=== PATIENT | female | born 1975 | race Caucasian/White ===

== ENCOUNTER → 2016-06-01 | Outpatient (CLI) | payer BC ==
[2016-06-01 16:23] VITALS: BP 137/94; PULSE 84; RESP 14; TEMP 100.8; BMI 32.5
--- NOTE | 2016-07-11 13:49 | PN ---
DATE OF SERVICE: 06/01/2016. CHIEF COMPLAINT: Follow-up sleeve gastrectomy. HISTORY OF PRESENT ILLNESS: Rosita Erazo is a 41-year-old female status post sleeve gastrectomy November 2013. She is 2 to 2-1/2 years out. Her highest weight for her 5 feet frame was 224 pounds. Her ideal body weight is 127 pounds. Today she comes in weighing 166 pounds. In fact she has gained 12 pounds, since her last visit in December 2015, now 5 months ago. Percent excess weight loss is 59%. She is maintained a 58 pounds weight loss. Body mass index is reduced from 43.8 down to 32.6. Total BMI point reduction is 11.3. She reports feeling ill today. She reports also having moderate appetite as well. Separately her other concerns include troubles with her skin as she is also evaluating for a panniculectomy. PAST MEDICAL HISTORY: 1. Irritable bowel syndrome. 2. Osteoarthritis of the hips. 3. Plantar fasciitis. 4. Morbid obesity. PAST SURGICAL HISTORY: 1. x2. 2. Tubal ligation. 3. Upper endoscopy. 4. Status post sleeve gastrectomy. MEDICATIONS: 1. Vitamin A. 2. Thiamine. 3. Omeprazole. 4. Multivitamin. 5. Metoprolol. 6. Iron. 7. Vitamin D. 8. Acyclovir. ALLERGIES: Denies. SOCIAL HISTORY: No active tobacco use. Rare alcohol use. FAMILY HISTORY: Pertinent for colitis including gallbladder disorder. REVIEW OF SYSTEMS: CONSTITUTIONAL: Weight gain of 12 pounds in [address] [place] [address] body weight of 127 pounds. Initial weight of 224 pounds. Total weight loss of 58 pounds. Percent excess weight loss is 59%. Body mass index reduced from 53.8 down to 32.6. Total BMI point reduction of 11.3. GASTROINTESTINAL: Has intermittent gastroesophageal reflux disease including colitis and irritable bowel syndrome. HEENT: No troubles with vision or hearing. ENDOCRINE: No reports of diabetes or thyroid disorders. CARDIOVASCULAR: No reports of heart attack or chest pain. RESPIRATORY: No reports of obstructive sleep apnea or asthma. GENITOURINARY: No reports of hematuria or kidney stones. MUSCULOSKELETAL: Improvement of bilateral hip pain. NEURO: No reports of stroke or seizure disorders. PSYCH: No reports of depression or suicidal ideation. PHYSICAL EXAM: VITAL SIGNS: 100.8, 84, 14, 137/94, 5 feet, 166 pounds. Body mass index of 32.6. GENERAL: Well-developed female no acute distress. ABDOMEN: Pannus extends over pubis x 5 cm. Mild hyperemia. No palpable incisional hernias. Soft, nontender, nondistended. HEENT: No sclerae icterus. Extraocular muscles intact. Moist buccal mucosa. NECK: Supple without lymphadenopathy. CHEST: Normal inspirations with equal bilateral excursions. CARDIOVASCULAR: Regular rate and rhythm. MUSCULOSKELETAL: No clubbing, cyanosis, or edema. NEURO: No focal or lateralizing signs. PSYCH: Appropriate affect. Alert and oriented to person, place, and time. ASSESSMENT: 1. Morbid obesity due to exogenous caloric intake, now resolved. 2. Body mass index reduced from 43.8 down to 32.6. 3. Status post sleeve gastrectomy. 4. History of osteoarthritis of the bilateral feet, resolved. 5. History of prediabetic state, resolved. 6. History of irritable bowel syndrome. 7. Chronic constipation. 8. Vitamin D deficiency. 9. Change in bowel habits. 10. Gastroesophageal reflux disease. 11. Hyperdynamic gallbladder. 12. Cold sores. 13. Iron deficiency anemia. 14. Panniculitis. 15. Epigastric abdominal pain. 16. Vitamin A deficiency. 17. Fever secondary to a viral source. 18. Dietary surveillance and counseling. PLAN: 1. Recommend bariatric metabolic panel. 2. She has gained quite a bit of weight and she reports increased appetite. Recommend dietary counseling with follow-up in approximately one month and initiation of a ketogenic diet. 3. She on exam she has panniculitis which Nystatin powder has been prescribed on her behalf. ADDENDUM: LABS: White count was normal at 9.8, hemoglobin was normal at 12.2. BUN was low 0.5. Iron is low at 21. Percent iron saturation low at 7.7. Ferritin elevated at 236. Vitamin B12 greater than 1000 and elevated. Vitamin D low at 26.3. Vitamin A low at 37, zinc is low at 50. Recommend zinc supplements including vitamin A supplements and vitamin D supplement. She also needs iron supplement and correction prior to any further surgical intervention for panniculectomy. Nystatin powder has been written on her behalf. [facility]
== END | disposition home or self-care (01) ==
LOC: BARWHC3 15:58
PROVIDERS: ATTEND Surgery Plastic and Reconstructive Surgery
DX: Z48.815 Encounter for surgical aftercare following surgery on the digestive system (principal); Z98.84 Bariatric surgery status; E66.01 Morbid (severe) obesity due to excess calories; E21.1 Secondary hyperparathyroidism, not elsewhere classified; E89.1 Postprocedural hypoinsulinemia; D50.8 Other iron deficiency anemias; E44.0 Moderate protein-calorie malnutrition; E55.9 Vitamin D deficiency, unspecified; K74.1 Hepatic sclerosis; N19 Unspecified kidney failure; K90.9 Intestinal malabsorption, unspecified
CPT/HCPCS: 99211

== ENCOUNTER → 2016-06-02 | Outpatient (CLI) | payer BC ==
[2016-06-02 16:32] LABS: CH 30.3; CHCM 34.2; HCT 35.7 % (34.0-46.0); HDW 2.55; HGB 12.2 gm/dL (11.4-16.0); MCH 30.4 pg (25.0-35.0); MCHC 34.2 g/dL (31.0-37.0); Mean Platelet Volume 8.4; RBC 4.02 m/uL (3.80-5.40); RDW 12.6 % (11.5-15.5); WBC 9.8 k/uL (3.8-10.6)
[2016-06-02 16:39] LABS: Partial Thromboplastin Time 26.7 sec (22.0-30.0); Prothrombin Time 9.9 sec (9.0-12.0)
[2016-06-02 16:47] LABS: ALT 32 U/L (9-52); AST 18 U/L (14-36); Alkaline Phosphatase 74 U/L (38-126); Anion Gap 9 mmol/L; Blood Urea Nitrogen 14 mg/dL (7-17); Calcium 9.3 mg/dL (8.4-10.2); Carbon Dioxide 30 mmol/L (22-30); Chloride 103 mmol/L (98-107); Cholesterol 154 mg/dL (<200); Glucose 88 mg/dL (74-99); HDL Cholesterol 58 mg/dL (40-60); Iron 21 ug/dL (37-170); Magnesium 2.1 mg/dL (1.6-2.3); Non-African American GFR(MDRD) >60 (>60 ml/min/1.73 sqM); Phosphorous 4.4 mg/dL (2.5-4.5); Potassium 4.7 mmol/L (3.5-5.1); Sodium 142 mmol/L (137-145); Total Bilirubin 0.2 mg/dL (0.2-1.3); Total Protein 6.5 g/dL (6.3-8.2); Triglycerides 81 mg/dL (<150)
[2016-06-02 16:58] LABS: % Iron Saturation 7.7 % (20-50); Prealbumin 22 mg/dL (18-36); Total Iron Binding Capacity 272 ug/dL (265-497)
[2016-06-02 17:53] LABS: Vitamin B12 >1000 pg/mL (239-931)
[2016-06-02 18:42] LABS: Hemoglobin A1C 4.7 % (4.2-6.1)
[2016-06-08 17:47] LABS: Selenium 142 mcg/L (63-160)
== END | disposition home or self-care (01) ==
LOC: LABWHC1 15:51
PROVIDERS: ATTEND Surgery Plastic and Reconstructive Surgery
DX: E66.01 Morbid (severe) obesity due to excess calories (principal); E89.1 Postprocedural hypoinsulinemia; D50.8 Other iron deficiency anemias; K90.89 Other intestinal malabsorption; E44.0 Moderate protein-calorie malnutrition; E55.9 Vitamin D deficiency, unspecified; K74.1 Hepatic sclerosis; N19 Unspecified kidney failure; K50.90 Crohn's disease, unspecified, without complications; E21.1 Secondary hyperparathyroidism, not elsewhere classified; Z48.815 Encounter for surgical aftercare following surgery on the digestive system; Z98.84 Bariatric surgery status
CPT/HCPCS: 36415; 80053; 80061; 82306; 82525; 82607; 82728; 82746; 83036; 83540; 83550; 83735; 83970; 84100; 84134; 84255; 84425; 84443; 84590; 84630; 85027; 85610; 85730

== ENCOUNTER → 2016-07-20 | Outpatient (CLI) | payer BC ==
[2016-07-20 16:58] VITALS: BP 146/76; PULSE 67; TEMP 98.2; BMI 32.0
--- NOTE | 2016-08-16 23:05 | P.PN ---
Progress Note - Text DATE OF SERVICE: 07/20/2016. CHIEF COMPLAINT: Panniculitis. HISTORY OF PRESENT ILLNESS: Rosita Erazo is a 41-year-old female status post sleeve gastrectomy November 2013. She is now over 2-1/2 years out. Her highest weight for her 5 feet frame was 224 pounds. Today she comes in weighing 164 pounds. She has lost 60 pounds. In fact she has lost 3 pounds since her last visit 2 months ago. Percent excess weight loss is 50%. Body mass index is reduced from 43.8 down to 32. She is only 37 pounds overweight. BMI point reduction is 12 points. She has been treated for nystatin powder for several years. Given the moderate size pannus including pain from her pannus she is evaluating for a panniculectomy. PAST MEDICAL HISTORY: 1. Irritable bowel syndrome. 2. Osteoarthritis of the hips. 3. Plantar fasciitis. 4. Morbid obesity, improved. 5. Panniculitis. PAST SURGICAL HISTORY: 1. x2. 2. Tubal ligation. 3. Upper endoscopy. 4. Status post sleeve gastrectomy. MEDICATIONS: 1. Vitamin A. 2. Thiamine. 3. Omeprazole. 4. Nystatin powder. 5. Multivitamin. 6. Metoprolol. 7. Iron. 8. Vitamin D. 9. Acyclovir. ALLERGIES: Denies. SOCIAL HISTORY: No active tobacco use. Rare alcohol use. FAMILY HISTORY: Pertinent for colitis including gallbladder disorder. REVIEW OF SYSTEMS: CONSTITUTIONAL: [place] body weight of 127 pounds. Initial weight of 224 pounds. Weight loss 60 pounds. She has lost 3 pounds in less than 2 months. Percent excess weight loss is 60%. Initial body mass index is 43.8. She is only 37 pounds overweight. CARDIOVASCULAR: She is now on blood pressure medications. MUSCULOSKELETAL: Reports lower back pain secondary to her pannus. Improvement of bilateral hip pain. GASTROINTESTINAL: Has intermittent gastroesophageal reflux disease including colitis and irritable bowel syndrome. HEENT: No troubles with vision or hearing. ENDOCRINE: No reports of diabetes or thyroid disorders. RESPIRATORY: No reports of obstructive sleep apnea or asthma. GENITOURINARY: No reports of hematuria or kidney stones. NEURO: No reports of stroke or seizure disorders. PSYCH: No reports of depression or suicidal ideation. PHYSICAL EXAM: VITAL SIGNS: 98.2, 67, 146/76, 5 feet, 164 pounds. Body mass is 32. ABDOMEN: Soft, nondistended, nontender. Pannus extends over pubis x 5 cm, hyperemic consistent with panniculitis. GENERAL: Well-developed female no acute distress. HEENT: No sclerae icterus. Extraocular muscles intact. Moist buccal mucosa. NECK: Supple without lymphadenopathy. CHEST: Normal inspirations with equal bilateral excursions. CARDIOVASCULAR: Regular rate and rhythm. MUSCULOSKELETAL: No clubbing, cyanosis, or edema. NEURO: No focal or lateralizing signs. PSYCH: Appropriate affect. Alert and oriented to person, place, and time. ASSESSMENT: 1. Morbid obesity due to excess calories, resolved. 2. Body mass index reduced from 43.8 down to 32. 3. Status post sleeve gastrectomy. 4. History of osteoarthritis of the bilateral feet, resolved. 5. History of prediabetic state, resolved. 6. History of irritable bowel syndrome. 7. Chronic constipation. 8. Vitamin D deficiency. 9. Obesity, body mass index 32. 10. Gastroesophageal reflux disease. 11. Iron deficiency anemia. 12. Panniculitis. 13. Vitamin A deficiency. 14. Zinc deficieny. PLAN: 1. In the interim, she will continue nystatin powder. Given the length of her bariatric procedure as well as time frame, panniculectomy will be of benefit. 2. She has completed bariatric metabolic panel which labs were consistent with vitamin A deficiency, zinc deficiency, Vitamin D deficiency all of which would need to be corrected prior to any surgical intervention. 3. Recommend follow-up upon her weight loss goal prior to panniculectomy as well. 4. Panniculectomy packet was given to her with the risk of bleeding, infection, flap failure, need for revisional surgery, postoperative seromas, placement of drains and chronic pain were also reviewed. 5. Will need inpatient hospitalization at least overnight. 6. DVT prophylaxis. 7. Antibiotic prophylaxis.
== END | disposition home or self-care (01) ==
LOC: BARWHC3 15:43
PROVIDERS: ATTEND Surgery Plastic and Reconstructive Surgery
DX: Z01.818 Encounter for other preprocedural examination (principal); M79.3 Panniculitis, unspecified; E66.9 Obesity, unspecified; Z68.32 Body mass index [BMI] 32.0-32.9, adult; Z98.84 Bariatric surgery status; Z79.899 Other long term (current) drug therapy
CPT/HCPCS: 99211

== ENCOUNTER 2017-11-22 14:49 | Emergency (ER) | payer BC ==
[2017-11-22 15:58] VITALS: RESP 18
[2017-11-22 16:31] LABS: Appearance,Urine Cloudy (Clear); Bilirubin,Urine Negative (Negative); Blood,Urine Large (Negative); Color,Urine Yellow; Glucose,Urine (UA) Negative (Negative); Ketones,Urine Negative (Negative); Leukocyte Esterase,Urine Moderate (Negative); Mucus,Urine Few /hpf; Nitrite,Urine Negative (Negative); PH, Urine 5.5 (5.0-8.0); Protein,Urine 1+ (Negative); RBC,Urine 46 /hpf (0-5); Specific Gravity,Urine 1.025 (1.001-1.035); Squamous Epithelial Cell,Urine 4 /hpf (0-4); Urobilinogen,Urine <2.0 mg/dL (<2.0)
[2017-11-22] MEDS ORDERED: NITROFURANTOIN MONOHYD/M-CRYST 100 MG CAP PO STA (17:36)
[2017-11-22] MEDS ORDERED: PHENAZOPYRIDINE 200 MG TAB PO STA (17:36)
[2017-11-22] MEDS ORDERED: IBUPROFEN 600 MG STARTER PACK 4 TAB BTL PO STA (17:36)
--- NOTE | 2017-11-22 17:44 | ED ---
Female Urogenital HPI - General Chief complaint: Urogenital Stated complaint: vaginal bleeding/bladder problems Time Seen by Provider: 11/22/17 16:56 Source: patient, RN notes reviewed, old records reviewed Mode of arrival: ambulatory Limitations: no limitations - History of Present Illness Initial comments: 42-year-old female presents emergency department today and she will complain of dysuria for 1 day. She also complains of vaginal bleeding last night into today , she reports that she had a uterine ablation 8 years ago. She's had no menstrual bleeding up until last night. Patient states that she has burning at the end of her urination. She's been going frequently. She is concerned that she may have a bladder prolapse. 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 She states that she follow up with on any. Patient states she's had no other symptoms at this time. - Related Data Home Medications Medication Instructions Recorded Confirmed Escitalopram [Lexapro] 10 mg PO HS 11/22/17 11/22/17 Metoprolol Succinate (ER) [Toprol 50 mg PO HS 11/22/17 11/22/17 Xl] Zolpidem Tartrate [Ambien] 5 mg PO HS 11/22/17 11/22/17 Previous Rx's Medication Instructions Recorded Nitrofurantoin Monohyd/M-Cryst 100 mg PO Q12HR #20 cap 11/22/17 [Macrobid] Phenazopyridine HCl [Pyridium] 100 mg PO TID #9 tab 11/22/17 Allergies Allergy/AdvReac Type Severity Reaction Status Date / Time No Known Allergies Allergy Verified 11/22/17 17:06 Review of Systems ROS Statement: Those systems with pertinent positive or pertinent negative responses have been documented in the HPI. ROS Other: All systems not noted in ROS Statement are negative. Constitutional: Denies: chills Eyes: Denies: eye pain ENT: Denies: ear pain, throat pain Respiratory: Denies: cough, dyspnea Cardiovascular: Denies: palpitations Endocrine: Denies: fatigue Gastrointestinal: Denies: abdominal pain Genitourinary: Reports: urgency, dysuria, frequency, abnormal menses. Denies: hematuria Musculoskeletal: Denies: back pain Skin: Denies: lesions Psychiatric: Denies: anxiety Past Medical History Past Medical History: No Reported History Additional Past Medical History / Comment(s): 2004 gestational diabetes w/ but never any other time, borderline hypertension, has never needed meds., no periods since ablation 3 yrs. ago, had HIDDA scan and ultrasound for gallbladder which was negative [id number] History of Any Multi-Drug Resistant Organisms: None Reported Past Surgical History: Bariatric Surgery, Section, Tubal Ligation, Uterine Ablation Additional Past Surgical History / Comment(s): LEEP procedure, TUBAL LIGATION 11-11-2004, 11/11/13 gastric sleeve Past Anesthesia/Blood Transfusion Reactions: No Reported Reaction Past Psychological History: No Psychological Hx Reported Smoking Status: Never smoker Past Alcohol Use History: Rare Past Drug Use History: None Reported General Exam - General Exam Comments Initial Comments: 42-year-old female. Alert and oriented. No acute distress. General: Well appearing, well nourished, in no distress. Oriented x 3, normal mood and affect . Ambulating without difficulty. Skin: Good turgor, no rash, unusual bruising or prominent lesions Hair: Normal texture and distribution. HEENT: Head: Normocephalic, atraumatic, no visible or palpable masses, depressions, or scaring. Eyes: Visual acuity intact, conjunctiva clear, sclera non-icteric, EOM intact, PERRL. Ears: EACs clear, TMs translucent & cone of light visualized. hearing intact. Nose: No external lesions, mucosa non-inflamed, septum and turbinates normal Mouth: Mucous membranes moist, no mucosal lesions. Teeth/Gums: No obvious caries or periodontal disease. No gingival inflammation or significant resorption. Pharynx: Mucosa non-inflamed, no tonsillar hypertrophy or exudate Neck: Supple, without lesions, bruits, or adenopathy, thyroid non-enlarged and non-tender Heart: No cardiomegaly or thrills; regular rate and rhythm, no murmur or gallop Lungs: Clear to auscultation and percussion Abdomen: Bowel sounds normal, no tenderness, organomegaly, masses, or hernia Extremities: No amputations or deformities, cyanosis, edema or varicosities, peripheral pulses intact Musculoskeletal: Normal gait and station. No misalignment, asymmetry, crepitation, defects, tenderness, masses, effusions, decreased range of motion, instability, atrophy or abnormal strength or tone in the head, neck, spine, ribs , pelvis or extremities. Neurologic: CN 2-12 normal. Sensation to pain, touch, and proprioception normal. DTRs normal in upper and lower extremities. No pathologic reflexes. Psychiatric: Oriented X3, intact recent and remote memory, judgment and insight , normal mood and affect. Pelvic: Vagina and cervix without lesions or discharge. Uterus and adnexa/ parametria nontender without masses. I see no vaginal bleeding this time. Cervix appears normal. She does have some bulging of the anterior aspect of the vagina concern for possibility of cystocele. Limitations: no limitations Course Vital Signs 11/22/17 11/22/17 15:55 18:47 Temperature 98.5 F 98.6 F Pulse Rate 81 67 Respiratory 18 18 Rate Blood Pressure 143/86 158/86 O2 Sat by Pulse 100 98 Oximetry Medical Decision Making - Medical Decision Making 42-year-old female presents with dysuria, and onset of vaginal bleeding last night. She has not had a period in the ears. This time she has no bleeding and pelvic exam. We did complete an ultrasound. This shows no evidence of fibroids or any other uterine abnormalities for bleeding. She does have evidence of urinary tract infection. Most likely the source of patient's pain with this dysuria and frequency. She is concerned for possibility of breath prolapse. 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 I do suspect a minor cystocele this time. Had discussion is follow-up with [employer]. We'll put the Patient on Macrobid and peridium for the UTI. She's ever had a UTI in the past. I discussed close follow-up with PCP and gynecology. Patient agrees treatment will comply. Return parameters were discussed. - Lab Data Lab Results 11/22/17 Range/Units 16:17 Urine Color Yellow Urine Appearance Cloudy H (Clear) Urine pH 5.5 (5.0-8.0) Ur Specific [place] 1.025 (1.001-1.035) Urine Protein 1+ H (Negative) Urine Glucose (UA) Negative (Negative) Urine Ketones Negative (Negative) Urine Blood Large H (Negative) Urine Nitrite Negative (Negative) Urine Bilirubin Negative (Negative) Urine Urobilinogen <2.0 (<2.0) mg/dL Ur Leukocyte Esterase Moderate H (Negative) Urine RBC 46 H (0-5) /hpf Urine WBC 65 H (0-5) /hpf Ur Squamous Epith Cells 4 (0-4) /hpf Urine Mucus Few H (None) /hpf - Radiology Data Radiology results: report reviewed No endometrial thickening seen. Normal size uterus. 1.3 cm right ovarian cyst. Disposition Clinical Impression: Abnormal uterine bleeding, UTI (urinary tract infection) Disposition: HOME SELF-CARE Condition: Good Instructions: Urinary Tract Infection in Women (ED), Cystocele (ED) Additional Instructions: Patient advised to take the antibiotic as prescribed. Follow-up with [employer]. Return to the emergency department if any alarming signs or symptoms occur. Prescriptions: Nitrofurantoin Monohyd/M-Cryst [Macrobid] 100 mg PO Q12HR #20 cap Phenazopyridine HCl [Pyridium] 100 mg PO TID #9 tab Is patient prescribed a controlled substance at d/c from ED?: No Referrals: Weston Rai DO [Primary Care Provider] - 1-2 days Reymundo Jeong MD [STAFF PHYSICIAN] - 1-2 days Time of Disposition: 18:30
--- NOTE | 2017-11-22 18:17 | US ---
EXAMINATION TYPE: US transvaginal DATE OF EXAM: 11/22/2017 COMPARISON: NONE CLINICAL HISTORY: Pain. Bleeding today no period for 9 years had an ablation done 8 years ago. TECHNIQUE: Transvaginal (TV). EXAM MEASUREMENTS: Uterus: 7.9 x 3.2 x 4.7 cm Right Ovary: 2.9 x 2.5 x 2.5 cm 1. Uterus: Anteverted Nabothian cysts seen. 2. Endometrium: Not well defined due to ablation. 3. Right Ovary: Multiple cystic area largest with a septation measuring 1.5 x 1.2 x 1.5cm. 4. Left Ovary: Obscured by overlying bowel gas Spectral, color and waveform doppler imaging shows good arterial and venous flow within the right o vary; there is no evidence for ovarian torsion. 5. Bilateral Adnexa: wnl 6. Posterior cul-de-sac: wnl nabothian cysts seen. Right ovary cyst with septation measuring 1.5 x 1.2 x 1.5cm. IMPRESSION: No endometrial thickening seen. Normal-sized uterus. 1.3 cm right ovarian cyst.
[2017-11-22 18:49] VITALS: BP 158/86; PULSE 67; TEMP 98.6
== END 2017-11-22 18:48 | disposition home or self-care (01) ==
LOC: EC 14:49
DX: N39.0 Urinary tract infection, site not specified (principal); N93.8 Other specified abnormal uterine and vaginal bleeding; Z79.899 Other long term (current) drug therapy; Z98.51 Tubal ligation status; Z98.890 Other specified postprocedural states
CPT/HCPCS: 76830; 81001; 87077; 87086; 87186; 93976; 99285

== ENCOUNTER → 2018-05-16 | Outpatient (CLI) | payer BC ==
[2018-05-16 14:39] VITALS: BP 160/96; PULSE 64; TEMP 98.1; BMI 32.3
--- NOTE | 2018-05-16 15:47 | P.PN ---
Subjective Progress Note Date: 05/16/18 DATE OF SERVICE: 05/16/2018 CHIEF COMPLAINT: Panniculitis. HISTORY OF PRESENT ILLNESS: Rosita Erazo is a 42-year-old female status post sleeve gastrectomy November 2013. She is 5 years out. Her highest weight for her 4 feet 11.5 frame was 227 pounds. Today she comes in weighing 165 pounds from 164 pounds, 2 years ago. She has lost 62 pounds. She has gained 1 pound in 2 years. Percent excess weight loss is 60%. Body mass index is reduced from 45.2 down to 32.8.. She is 42 pounds overweight. She has been treated for panniculitis with nystatin powder for over 5 years without imrpovement. Given the moderate size pannus including pain from her pannus she is evaluating for a panniculectomy. Additionally, she reports severe GERD. She takes Tums everyday. She has much gas. PAST MEDICAL HISTORY: 1. Irritable bowel syndrome. 2. Osteoarthritis of the hips. 3. Plantar fasciitis. 4. Morbid obesity, BMI 45.2, initial 5. Panniculitis. PAST SURGICAL HISTORY: 1. x2. 2. Tubal ligation. 3. Upper endoscopy. 4. Status post sleeve gastrectomy. MEDICATIONS: 1. Multivitamin. ALLERGIES: Denies. SOCIAL HISTORY: No active tobacco use. Rare alcohol use. FAMILY HISTORY: Pertinent for colitis including gallbladder disorder. REVIEW OF SYSTEMS: CONSTITUTIONAL: [place] body weight of 127 pounds. Initial weight of 227 pounds. Initial body mass index is 45.2. CARDIOVASCULAR: She is off blood pressure medications. No chest pain. MUSCULOSKELETAL: Reports lower back pain secondary to her pannus. Improvement of bilateral hip pain. GASTROINTESTINAL: Has intermittent gastroesophageal reflux disease including colitis and irritable bowel syndrome. HEENT: No troubles with vision or hearing. ENDOCRINE: No reports of diabetes or thyroid disorders. RESPIRATORY: No reports of obstructive sleep apnea or asthma. GENITOURINARY: No reports of hematuria or kidney stones. NEURO: No reports of stroke or seizure disorders. PSYCH: No reports of depression or suicidal ideation. SKIN: History of panniculitis. No skin cancer. PHYSICAL EXAM: VITAL SIGNS: 4 foot 11.5 inches, 165 pounds. Body mass is 32.8 Vital Signs Temp 98.1 F 05/16/18 14:36 Pulse 64 05/16/18 14:36 Resp BP 160/96 05/16/18 14:36 Pulse Ox GENERAL: Well developed and in no acute distress. Pleasant. HEENT: No sclera icterus. Extraocular movements grossly intact. Moist buccal mucosa. Head is atraumatic, normocephalic. Hears conversational speech. No nasal drainage. NECK: Supple without lymphadenopathy. No JV distention. CHEST: Non-labored respirations and equal bilateral excursions. CARDIOVASCULAR: Regular rate and rhythm. Palpable 2+ radial pulses. ABDOMEN: Soft, nontender. Nondistended. MUSCULOSKELETAL: No clubbing, cyanosis or edema. NEUROLOGIC: No focal or lateralizing signs. Cranial nerves II-12 grossly intact PSYCH: Appropriate affect. Alert and oriented to person, place and time. BREAST: There are no palpable lesions along the bilateral breasts. No axillary adenopathy. SKIN: Good skin turgor. Well perfused. ASSESSMENT: 1. Morbid obesity due to excess calories, resolved. 2. Body mass index reduced from 45.2 down to 32.8 3. Status post sleeve gastrectomy. 4. History of osteoarthritis of the bilateral feet, resolved. 5. History of prediabetic state, resolved. 6. History of irritable bowel syndrome. 7. Chronic constipation. 8. Vitamin D deficiency. 9. Obesity, body mass index 32. 10. Gastroesophageal reflux disease. 11. Iron deficiency anemia. 12. Panniculitis. 13. Vitamin A deficiency. 14. Zinc deficieny. 15. Irritable bowel syndrome 16. Food allergy PLAN: 1. Recommend esophogram for hiatal hernia 2. Recommend upper endoscopy for gastroesophageal reflux disease 3. Recommend antacid for heartburn. 4. Irritable bowel syndrome cannot be excluded 5. May need evaluation with a food digital printer operator 6. Recommend bariatric labs to correct micronutrients 7. Panniculectomy packet given. 8. Recommend 2 week protein diet for weight loss. Objective - Vital Signs Vital signs: Vital Signs Temp 98.1 F 05/16/18 14:36 Pulse 64 05/16/18 14:36 Resp BP 160/96 05/16/18 14:36 Pulse Ox Intake & Output 05/15/18 05/16/18 05/16/18 18:59 06:59 18:59 Weight 75.024 kg
== END | disposition home or self-care (01) ==
LOC: BARWHC3 14:11
PROVIDERS: ATTEND Surgery Plastic and Reconstructive Surgery
DX: Z48.815 Encounter for surgical aftercare following surgery on the digestive system (principal); K59.09 Other constipation; E55.9 Vitamin D deficiency, unspecified; E66.9 Obesity, unspecified; K21.9 Gastro-esophageal reflux disease without esophagitis; D50.9 Iron deficiency anemia, unspecified; M79.3 Panniculitis, unspecified; E50.9 Vitamin A deficiency, unspecified; E60 Dietary zinc deficiency; K58.9 Irritable bowel syndrome, unspecified; T78.1XXA Other adverse food reactions, not elsewhere classified, initial encounter; Z68.32 Body mass index [BMI] 32.0-32.9, adult; Z98.84 Bariatric surgery status
CPT/HCPCS: 99211

== ENCOUNTER → 2019-05-22 | Outpatient (CLI) | payer BC ==
--- NOTE | 2019-05-22 16:06 | P.PN ---
Subjective Progress Note Date: 05/22/19 DATE OF SERVICE: 05/22/2019 CHIEF COMPLAINT: Panniculitis. HISTORY OF PRESENT ILLNESS: Rosita Erazo now Rosita Crockett is a 43-year-old female status post sleeve gastrectomy November 2013. She is 5 years out. She comes in with persistent panniculitis. She has been prescribed Nystatin powder for treatment over 5 years. She reports severe skin irritation that stings along her pannus. She reports lower back pain from her pannus. She has tried [id number] treatment without improvement. She has pulling sensation along her lower back from her pannus. She has troubles with grooming and hygiene as a result of her pannus. Her pannus interferes with her activities of daily living including dressing, bathing, and hygiene. She presents for evaluation for a panniculectomy. Her ideal body weight for her 4 feet 11.5 is 123 pounds. Her highest weight is 227 pounds, BMI 45.2. Today she comes in weighing 152 pounds from 165 pounds, 1 year ago. She has lost 13 pounds in 1 year. Her lifetime weight loss is 75 pounds. Percent excess weight loss is 72 %. Body mass index is reduced from 45.2 down to 30.2. She is 29 pounds overweight. PAST MEDICAL HISTORY: 1. Irritable bowel syndrome. 2. Osteoarthritis of the hips. 3. Plantar fasciitis. 4. Morbid obesity, BMI 45.2, initial 5. Panniculitis. PAST SURGICAL HISTORY: 1. x2. 2. Tubal ligation. 3. Upper endoscopy. 4. Status post sleeve gastrectomy. MEDICATIONS: Home Medications Medication Instructions Recorded Confirmed Multivitamins, Thera [Multivitamin 1 tab PO DAILY 05/22/19 05/22/19 (formulary)] Previous Rx's Medication Instructions Recorded Nystatin 100,000 Unit/gm Powd 1 applic TOPICAL BID #60 powder 05/22/19 [Mycostatin Powder] ALLERGIES: Denies. SOCIAL HISTORY: No active tobacco use. Rare alcohol use. FAMILY HISTORY: Pertinent for colitis including gallbladder disorder. REVIEW OF SYSTEMS: CONSTITUTIONAL: [place] body weight of 127 pounds. Initial weight of 227 pounds. Initial body mass index is 45.2. CARDIOVASCULAR: She is off blood pressure medications. No chest pain. MUSCULOSKELETAL: Reports lower back pain secondary to her pannus. Improvement of bilateral hip pain. GASTROINTESTINAL: Has intermittent gastroesophageal reflux disease including colitis and irritable bowel syndrome. HEENT: No troubles with vision or hearing. ENDOCRINE: No reports of diabetes or thyroid disorders. RESPIRATORY: No reports of obstructive sleep apnea or asthma. GENITOURINARY: No reports of hematuria or kidney stones. NEURO: No reports of stroke or seizure disorders. PSYCH: No reports of depression or suicidal ideation. SKIN: History of panniculitis. No skin cancer. PHYSICAL EXAM: VITAL SIGNS: 4 foot 11.5 inches, 152 pounds. Body mass is 30.2 Vital Signs Temp 98 F 05/22/19 16:08 Pulse 77 05/22/19 16:08 Resp BP 145/93 05/22/19 16:08 Pulse Ox GENERAL: Well developed and in no acute distress. Pleasant. HEENT: No sclera icterus. Extraocular movements grossly intact. Moist buccal mucosa. Head is atraumatic, normocephalic. Hears conversational speech. No nasal drainage. NECK: Supple without lymphadenopathy. No JV distention. CHEST: Non-labored respirations and equal bilateral excursions. CARDIOVASCULAR: Regular rate and rhythm. Palpable 2+ radial pulses. ABDOMEN: Pannus over 6 cm hanging with redness. Weight of 10 pounds. Soft, nontender. Nondistended. No large palpable hernias. MUSCULOSKELETAL: No clubbing, cyanosis or edema. NEUROLOGIC: No focal or lateralizing signs. Cranial nerves II-12 grossly intact PSYCH: Appropriate affect. Alert and oriented to person, place and time. BREAST: There are no palpable lesions along the bilateral breasts. No axillary adenopathy. SKIN: Good skin turgor. Well perfused. ASSESSMENT: 1. Morbid obesity due to excess calories, resolved. 2. Body mass index reduced from 45.2 down to 30.2 3. Status post sleeve gastrectomy. 4. History of osteoarthritis of the bilateral feet, resolved. 5. History of prediabetic state, resolved. 6. History of irritable bowel syndrome. 7. Chronic constipation. 8. Vitamin D deficiency. 9. Gastroesophageal reflux disease. 10. Iron deficiency anemia. 11. Panniculitis. PLAN: 1. Recommend panniculectomy for chronic panniculitis with concomittant severe lower back pain and uncontrolled symptoms despite systemic and local treatment including limitation of activities of daily living. Anticipated resection of 5 to 10 pounds described. Panniculectomy should correct her functional deficits. 2. Recommend 2 week protein diet for optimal recovery. 3. Risks of bleeding, needs for drains, flap failure, infection, need for further surgery were described. She is high risk for lg-operative complications with anticipated 10+ pound skin resection. 4. Inpatient hospitalization also described 5. DVT prophylaxis. 6. Antibiotic prophylaxis 7. Will need correction of all vitamin deficiencies prior to panniculectomy. 8. In the interim, Nystatin powder prescribed for her symptoms.
[2019-05-22 16:21] VITALS: BP 145/93; PULSE 77; TEMP 98; BMI 30.2
== END | disposition home or self-care (01) ==
LOC: BARWHC3 14:33
PROVIDERS: ATTEND Surgery Plastic and Reconstructive Surgery
DX: Z48.815 Encounter for surgical aftercare following surgery on the digestive system (principal); E66.01 Morbid (severe) obesity due to excess calories; K59.09 Other constipation; E55.9 Vitamin D deficiency, unspecified; K21.9 Gastro-esophageal reflux disease without esophagitis; D50.9 Iron deficiency anemia, unspecified; M79.3 Panniculitis, unspecified; Z68.30 Body mass index [BMI] 30.0-30.9, adult; Z87.19 Personal history of other diseases of the digestive system; Z98.84 Bariatric surgery status; Z79.899 Other long term (current) drug therapy
CPT/HCPCS: 99211

== ENCOUNTER → 2019-05-27 | Outpatient (CLI) | payer BC ==
[2019-05-27 09:58] LABS: HCT 39.7 % (34.0-46.0); HGB 12.9 gm/dL (11.4-16.0); MCH 29.1 pg (25.0-35.0); MCHC 32.4 g/dL (31.0-37.0); Mean Platelet Volume 8.8; Platelet Count 285 k/uL (150-450); RBC 4.41 m/uL (3.80-5.40); WBC 8.6 k/uL (3.8-10.6)
[2019-05-27 10:06] LABS: Partial Thromboplastin Time 26.3 sec (22.0-30.0); Prothrombin Time 10.1 sec (9.0-12.0)
[2019-05-27 16:45] LABS: % Iron Saturation 36.74 (12.00-45.00); African American GFR (CKD) 130.3 (60.0-200.0); Albumin 4.4 g/dL (3.80-4.90); Albumin/Globulin Ratio 2.44 (1.60-3.17); Anion Gap 6.6 mmol/L (4.00-12.00); Calcium 9.1 mg/dL (8.7-10.3); Carbon Dioxide 26.4 mmol/L (21.6-31.8); Chol/HDL Ratio 2.8; Globulin 1.8 g/dL (1.6-3.3); Non-African American GFR(CKD) 112.4 (60.0-200.0); Phosphorus 3.6 mg/dL (2.4-5.1); Total Bilirubin 0.5 mg/dL (0.3-1.2); Total Protein 6.2 g/dL (6.2-8.2)
[2019-05-27 16:55] LABS: Ferritin 240.8 ng/mL (10.0-291.0)
[2019-05-27 16:56] LABS: Folate, Serum 8.5 ng/mL
[2019-05-28 12:44] LABS: Zinc, Serum 66 ug/dL (60-130)
[2019-05-28 13:51] LABS: Hemoglobin A1C 4.9 % (4.0-6.0)
[2019-05-30 08:19] LABS: Vit B1(Thiamine) 67 ug/L (38-122)
== END | disposition home or self-care (01) ==
LOC: LABWHC1 09:17
PROVIDERS: ATTEND Surgery Plastic and Reconstructive Surgery
DX: E66.01 Morbid (severe) obesity due to excess calories (principal); E21.1 Secondary hyperparathyroidism, not elsewhere classified; E89.1 Postprocedural hypoinsulinemia; D50.9 Iron deficiency anemia, unspecified; K90.9 Intestinal malabsorption, unspecified; E55.9 Vitamin D deficiency, unspecified; K76.9 Liver disease, unspecified; N19 Unspecified kidney failure; K50.90 Crohn's disease, unspecified, without complications
CPT/HCPCS: 36415; 80053; 80061; 82306; 82525; 82607; 82728; 82746; 83036; 83540; 83550; 83735; 83970; 84100; 84134; 84255; 84425; 84443; 84590; 84630; 85027; 85610; 85730

== ENCOUNTER 2019-11-20 09:18 | Day surgery (SDC) | payer BC ==
[2019-11-19 08:32] VITALS: BMI 30.1
--- NOTE | 2019-11-20 08:34 | P.GSHP ---
History of Present Illness H&P Date: 11/20/19 CHIEF COMPLAINT: GERD HISTORY OF PRESENT ILLNESS: The patient is a 44-year-old female who presents reports gastroesophageal reflux disease. Upper endoscopy was offered for further evaluation and management. PAST MEDICAL HISTORY: Please see list. PAST SURGICAL HISTORY: Please see list. MEDICATIONS: Please see list. ALLERGIES: Please see list. SOCIAL HISTORY: No illicit drug use FAMILY HISTORY: No reports of Crohn disease or ulcerative colitis. REVIEW OF ORGAN SYSTEMS: CONSTITUTIONAL: No reports of fevers or chills. GI: Denies any blood in stools or constipation. PHYSICAL EXAM: VITAL SIGNS: Stable GENERAL: Well-developed and pleasant in no acute distress. HEENT: No scleral icterus. Extraocular movements grossly intact. Moist buccal mucosa. NECK: Supple without lymphadenopathy. CHEST: Unlabored respirations. Equal bilateral excursions. CARDIOVASCULAR: Regular rate and rhythm. Distal 2+ pulses. ABDOMEN: Soft, nondistended. MUSCULOSKELETAL: No clubbing, cyanosis, or edema. ASSESSMENT: 1. Gastroesophageal reflux disease PLAN: 1. Recommend proceeding with an upper endoscopy Past Medical History Past Medical History: GERD/Reflux Additional Past Medical History / Comment(s): 2004 Hx Gestational Diabetes w/ in 2004, hx borderline hypertension. History of Any Multi-Drug Resistant Organisms: None Reported Past Surgical History: Bariatric Surgery, Section, Tubal Ligation, Uterine Ablation Additional Past Surgical History / Comment(s): LEEP procedure, Gastric Sleeve. Past Anesthesia/Blood Transfusion Reactions: No Reported Reaction Past Psychological History: No Psychological Hx Reported Smoking Status: Never smoker Past Alcohol Use History: Rare Past Drug Use History: None Reported - Past Family History Mother Family Medical History: No Reported History Medications and Allergies Home Medications Medication Instructions Recorded Confirmed Type Zolpidem [Ambien] 5 mg PO HS 10/23/19 11/19/19 History Acetaminophen [Tylenol Extra 1,000 mg PO BID 11/19/19 11/19/19 History Strength] Allergies Allergy/AdvReac Type Severity Reaction Status Date / Time No Known Allergies Allergy Verified 11/19/19 08:22
--- NOTE | 2019-11-20 08:40 | P.PCN ---
Date of Procedure: 11/20/19 Description of Procedure: PREOPERATIVE DIAGNOSIS: Gastroesophageal reflux disease. Morbid obesity. POSTOPERATIVE DIAGNOSIS: Morbid obesity. Gastritis. Gastroesophageal reflux disease. OPERATION: Esophagogastroduodenoscopy with biopsies along antrum. SURGEON: Priyanka Hewitt MD ANESTHESIA: MAC. INDICATIONS: The patient is a 44-year-old female who presents with a history of reflux disease. Benefits and risks of the procedure were described. Informed consent was obtained. DESCRIPTION: The patient was brought into the endoscopy suite and laid in the left lateral decubitus position. An Olympus gastroscope was passed along the posterior oropharynx down to the distal esophagus where the squamocolumnar junction was encountered at 40 cm from the incisors. The stomach was entered and no bile reflux was found. Additional findings are listed below. Biopsies with cold forceps were obtained of the antrum. The first through third portion of the duodenum was examined and unremarkable. Retroflexion of the scope confirmed Hill grade 2 lower esophageal valve. The squamocolumnar junction demonstrated no LA grade A erosive esophagitis. The stomach was desufflated. The patient tolerated the procedure well. FINDINGS: Squamocolumnar junction 40 cm from the incisors. Diaphragmatic hiatus at 40 cm. Hill grade 2 lower esophageal valve. No LA grade A erosive esophagitis. No active duodenitis. Chronic gastritis RECOMMENDATIONS: Upper endoscopy as needed. Plan - Discharge Summary Discharge Rx Participant: Yes New Discharge Prescriptions: Continue Zolpidem [Ambien] 5 mg PO HS Acetaminophen [Tylenol Extra Strength] 1,000 mg PO BID Discharge Medication List Zolpidem [Ambien] 5 mg PO HS 10/23/19 [History] Acetaminophen [Tylenol Extra Strength] 1,000 mg PO BID 11/19/19 [History] [facility] [place] [facility] Patient Instructions/Handouts: Gastritis (DC) Discharge Disposition: HOME SELF-CARE
[~2019-11-20 09:18] MED LIST: LACTATED RINGERS 1,000 ML IV SCH
[2019-11-20 09:37] VITALS: RESP 16; TEMP 98.4
[2019-11-20] MEDS ORDERED: LIDOCAINE 1% (10MG/ML) FOR IV START INTRADERMA ONE (09:45)
[2019-11-20] MEDS ORDERED: PROPOFOL 10 MG/ML 20 ML VIAL IV ONE (10:45)
[2019-11-20] MEDS ORDERED: LIDOCAINE 1% INJ 10MG/ML (20 ML MDV) ONE (10:45)
--- NOTE | 2019-11-20 11:02 | P.PCN ---
Date of Procedure: 11/20/19 Description of Procedure: PREOPERATIVE DIAGNOSIS: Gastroesophageal reflux disease. Epigastric abdominal pain History of sleeve gastrectomy POSTOPERATIVE DIAGNOSIS: Gastritis. Gastroesophageal reflux disease. Diaphragmatic hiatal hernia History of sleeve gastrectomy OPERATION: Esophagogastroduodenoscopy with biopsies along antrum. SURGEON: Priyanka Hewitt MD ANESTHESIA: MAC. INDICATIONS: The patient is a 44-year-old female who presents with a history of reflux disease and history of sleeve gastrectomy. Benefits and risks of the procedure were described. Informed consent was obtained. DESCRIPTION: The patient was brought into the endoscopy suite and laid in the left lateral decubitus position. An Olympus gastroscope was passed along the posterior oropharynx down to the distal esophagus where the squamocolumnar junction was encountered at 36 cm from the incisors. The stomach was entered and bile reflux was found. The sleeve was lumen was without corkscrewing and adequate size reservoir. Additional findings are listed below. Biopsies with cold forceps were obtained of the antrum. The first through third portion of the duodenum was examined and unremarkable. Retroflexion of the scope was attempted and limited due to her sleeve gastrectomy. The squamocolumnar junction demonstrated LA grade B erosive esophagitis. The stomach was desufflated. The patient tolerated the procedure well. FINDINGS: Squamocolumnar junction 36 cm from the incisors. Diaphragmatic hiatus at 39 cm. Hiatal hernia, 3 cm Sleeve gastrectomy with uniform and adequate reservoir without corkscrewing or tortuosity. LA grade B erosive esophagitis. No active duodenitis. Acute and chronic gastritis with superficial ulceration RECOMMENDATIONS: Recommend repair of diaphragmatic hiatal hernia Also recommend start of Carafate including antacid Plan - Discharge Summary Discharge Rx Participant: Yes New Discharge Prescriptions: New Sucralfate [Carafate] 1 gm PO BID #60 tab Continue Zolpidem [Ambien] 5 mg PO HS Acetaminophen [Tylenol Extra Strength] 1,000 mg PO BID Discharge Medication List Zolpidem [Ambien] 5 mg PO HS 10/23/19 [History] Acetaminophen [Tylenol Extra Strength] 1,000 mg PO BID 11/19/19 [History] Sucralfate [Carafate] 1 gm PO BID #60 tab 11/20/19 [Rx] Follow [facility]ment[facility] [place] [facility] Patient Instructions/Handouts: Gastritis (DC), Hiatal Hernia (DC), Gastroesophageal Reflux Disease (DC) Activity/Diet/Wound Care/Special Instructions: New prescription at [facility] Discharge Disposition: HOME SELF-CARE
[2019-11-20 11:29] VITALS: BP 146/98; PULSE 72
--- NOTE | 2019-11-20 11:46 | P.PN ---
Progress Note - Text Progress Note Date: 11/20/19 To Whom It May Concern: Rosita Crockett had a procedure today. She she was ill yesterday. She will be off work until 11/22/2019 for follow-up. Regards, Priyanka Hewitt MD
== END 2019-11-20 11:46 | disposition home or self-care (01) ==
LOC: ORWHC2ENDO 09:18
PROVIDERS: ATTEND Surgery Plastic and Reconstructive Surgery
DX: K21.9 Gastro-esophageal reflux disease without esophagitis (principal); K44.9 Diaphragmatic hernia without obstruction or gangrene; K29.50 Unspecified chronic gastritis without bleeding; Z98.84 Bariatric surgery status; K22.10 Ulcer of esophagus without bleeding; K25.9 Gastric ulcer, unspecified as acute or chronic, without hemorrhage or perforation; I10 Essential (primary) hypertension; Z98.51 Tubal ligation status; Z98.890 Other specified postprocedural states; Z86.32 Personal history of gestational diabetes; Z79.899 Other long term (current) drug therapy
CPT/HCPCS: 81025; 88305; 43239; J2001; J2704

== ENCOUNTER → 2019-11-22 | Outpatient (CLI) | payer BC ==
--- NOTE | 2019-11-22 15:57 | FL ---
EXAMINATION TYPE: FL barium swallow DATE OF EXAM: 11/22/2019 HISTORY: Dysphasia. History of gastric sleeve. Patient reports significant gastroesophageal reflux. COMPARISON: NONE TECHNIQUE: A single contrast esophagram is performed utilizing barium. FINDINGS: The esophagus shows normal motility and emptying into the stomach. Small hiatal hernia. There is a s mall epiphrenic diverticulum seen anteriorly. No evidence of stricture. There is expected postoperati ve appearance of the stomach status post gastric sleeve surgery. Normal appearance of the duodenal sw eep. There is severe spontaneous gastroesophageal reflux seen during real time performance of this st udy. Total fluoroscopy time 1.02 minutes. IMPRESSION: 1. Small hiatal hernia. 2. Small epiphrenic diverticulum. 3. Severe spontaneous gastroesophageal reflux. 4. Expected postoperative appearance of the stomach status post gastric sleeve.
== END | disposition home or self-care (01) ==
LOC: RADFLMAIN 09:48
PROVIDERS: ATTEND Surgery Plastic and Reconstructive Surgery
DX: K21.9 Gastro-esophageal reflux disease without esophagitis (principal); K22.5 Diverticulum of esophagus, acquired; Z98.84 Bariatric surgery status
CPT/HCPCS: 74220

== ENCOUNTER → 2019-11-26 | Outpatient (CLI) | payer BC ==
[2019-11-26 13:36] LABS: HCT 41.6 % (34.0-46.0); HGB 13.3 gm/dL (11.4-16.0); MCH 28.7 pg (25.0-35.0); MCV 89.7 fL (80.0-100.0); Mean Platelet Volume 8.3; Platelet Count 313 k/uL (150-450); RBC 4.64 m/uL (3.80-5.40); RDW 13.1 % (11.5-15.5); WBC 7.9 k/uL (3.8-10.6)
[2019-11-26 13:42] LABS: ALT 17 U/L (4-34); AST 20 U/L (14-36); African American GFR (CKD) >90 (>60 ml/min/1.73 sqM); Albumin 4.4 g/dL (3.5-5.0); Alkaline Phosphatase 68 U/L (38-126); Anion Gap 8 mmol/L; Blood Urea Nitrogen 4 mg/dL (7-17); Calcium 9.6 mg/dL (8.4-10.2); Carbon Dioxide 28 mmol/L (22-30); Chloride 103 mmol/L (98-107); Cholesterol 174 mg/dL (<200); Glucose 85 mg/dL (74-99); HDL Cholesterol 61 mg/dL (40-60); LDL Cholesterol,Calculated 96 mg/dL (0-99); Magnesium 2.1 mg/dL (1.6-2.3); Non-African American GFR(CKD) >90 (>60 ml/min/1.73 sqM); Phosphorus 3.9 mg/dL (2.5-4.5); Potassium 4.1 mmol/L (3.5-5.1); Sodium 139 mmol/L (137-145); Total Bilirubin 0.4 mg/dL (0.2-1.3); Triglycerides 85 mg/dL (<150)
[2019-11-26 13:45] LABS: INR 0.9 (<1.2); Partial Thromboplastin Time 24.7 sec (22.0-30.0); Prothrombin Time 9.8 sec (9.0-12.0)
[2019-11-26 22:46] LABS: Ferritin 201.5 ng/mL (10.0-291.0); Folate, Serum 4.1 ng/mL
[2019-11-26 23:17] LABS: % Iron Saturation 16.67 (12.00-45.00); Iron 51 ug/dL (50-170); Total Iron Binding Capacity 306 ug/dL (228-460)
[2019-11-27 04:29] LABS: Hemoglobin A1C 5.1 % (4.0-6.0)
[2019-11-27 13:54] LABS: Zinc, Serum 66 ug/dL (60-130)
[2019-11-27 13:55] LABS: Vitamin A 42 ug/dL (38-106)
[2019-11-28 06:36] LABS: Vit B1(Thiamine) 56 ug/L (38-122)
[2019-11-29 02:49] LABS: Selenium 93 mcg/L (63-160)
== END | disposition home or self-care (01) ==
LOC: LABPAT 11:19
PROVIDERS: ATTEND Surgery Plastic and Reconstructive Surgery
DX: E21.1 Secondary hyperparathyroidism, not elsewhere classified (principal); E89.1 Postprocedural hypoinsulinemia; D50.9 Iron deficiency anemia, unspecified; K90.9 Intestinal malabsorption, unspecified; E55.9 Vitamin D deficiency, unspecified; K74.1 Hepatic sclerosis; N19 Unspecified kidney failure; K50.90 Crohn's disease, unspecified, without complications; E66.01 Morbid (severe) obesity due to excess calories
CPT/HCPCS: 36415; 80053; 80061; 82306; 82525; 82607; 82728; 82746; 83036; 83540; 83550; 83735; 83970; 84100; 84134; 84255; 84425; 84443; 84590; 84630; 85027; 85610; 85730; 86850; 86900; 86901

== ENCOUNTER 2019-12-02 10:45 | Day surgery (SDC) | payer BC ==
--- NOTE | 2019-12-02 06:38 | P.GSHP ---
History of Present Illness H&P Date: 12/02/19 CHIEF COMPLAINT: Paraesophageal hiatal hernia with gastroesophageal reflux disease. HISTORY OF PRESENT ILLNESS: The patient is a 44-year-old female who presents with paraesophageal hiatal hernia. She has completed additional work- up including upper endoscopy workup. Now she presents for surgical intervention. PAST MEDICAL HISTORY: Please see list. PAST SURGICAL HISTORY: Please see list. MEDICATIONS: Please see list. ALLERGIES: Please see list. SOCIAL HISTORY: No illicit drug use FAMILY HISTORY: No reports of Crohn disease or ulcerative colitis. REVIEW OF ORGAN SYSTEMS: CONSTITUTIONAL: No reports of fevers or chills. GI: Denies any blood in stools or constipation. PHYSICAL EXAM: VITAL SIGNS: Stable GENERAL: Well-developed pleasant and in no acute distress. HEENT: No scleral icterus. Extraocular movements grossly intact. Moist buccal mucosa. NECK: Supple without lymphadenopathy. CHEST: Unlabored respirations. Equal bilateral excursions. CARDIOVASCULAR: Regular rate and rhythm. Distal 2+ pulses. ABDOMEN: Soft, nondistended. No peritoneal signs. MUSCULOSKELETAL: No clubbing, cyanosis, or edema. SKIN: Well-perfused. Good skin turgor. ASSESSMENT: 1. Diaphragmatic paraesophageal hiatal hernia with severe gastroesophageal reflux disease. PLAN: 1. Recommend proceeding with a robotic paraesophageal hiatal hernia with possible mesh. 2. Benefits and risks of surgical intervention was discussed including possibility of open technique. 3. Inpatient hospitalization recommended of 2 nights 4. DVT prophylaxis. 5. Antibiotic prophylaxis. 6. She has also completed a very low caloric high-protein diet to address underlying hepatomegaly. Past Medical History Past Medical History: GERD/Reflux Additional Past Medical History / Comment(s): 2004 gestational diabetes w/ but never any other time. Borderline hypertension, has never needed meds. No periods since ablation 3 yrs. ago. History of Any Multi-Drug Resistant Organisms: None Reported Past Surgical History: Ablation, Bariatric Surgery, Section, Tubal Ligation, Uterine Ablation Additional Past Surgical History / Comment(s): UTERINE ABLATION. LEEP procedure. TUBAL LIGATION 11-11-2004. 11/11/13 gastric sleeve Past Anesthesia/Blood Transfusion Reactions: No Reported Reaction Past Psychological History: No Psychological Hx Reported Smoking Status: Never smoker Past Alcohol Use History: Rare Past Drug Use History: None Reported Medications and Allergies Home Medications Medication Instructions Recorded Confirmed Type Zolpidem [Ambien] 5 mg PO HS 07/15/20 08/18/20 History Acetaminophen [Tylenol Extra 1,000 mg PO BID 11/19/19 11/26/19 History Strength] Sucralfate [Carafate] 1 gm PO BID #60 tab 11/20/19 11/26/19 Rx Omeprazole [PriLOSEC] 40 mg PO DAILY PRN 11/26/19 11/26/19 History Allergies Allergy/AdvReac Type Severity Reaction Status Date / Time No Known Allergies Allergy Verified 11/26/19 09:31
[~2019-12-02 10:45] MED LIST changes: +ACETAMINOPHEN TAB 500 MG TAB PO PRN; +CHLORHEXIDINE GLUCONATE 15 ML CUP MUCOUS MEM ONE; +DEXAMETHASONE SOD PHOSPHATE 10 MG/ML 1 ML VIAL IV ONE; +GABAPENTIN 300 MG CAP PO STA; -LACTATED RINGERS 1,000 ML IV SCH; +LIDOCAINE 1% (10MG/ML) FOR IV START INTRADERMA PRN; +ONDANSETRON 4 MG/2 ML VIAL IVP ONE; +PANTOPRAZOLE 40 MG/10 ML VIAL IV STA; +SCOPOLAMINE 1.5MG/72HR PATCH TRANSDERM ONE; +SCOPOLAMINE 1.5MG/72HR PATCH TRANSDERM STA
[2019-12-02] MEDS ORDERED: fentaNYL (PF) 50 MCG/ML 2 ML AMP IV ONE (10:46)
[2019-12-02] MEDS ORDERED: MIDAZOLAM 2 MG/2 ML VIAL IV ONE (10:46)
[2019-12-02] MEDS ORDERED: ONDANSETRON 4 MG/2 ML VIAL IM ONE (10:46)
[2019-12-02] MEDS: LACTATED RINGERS 1,000 ML IV SCH (11:27)
[2019-12-02] MEDS ORDERED: ONDANSETRON 4 MG/2 ML VIAL ONE (11:43)
[2019-12-02] MEDS ORDERED: ACETAMINOPHEN TAB 500 MG TAB ONE (11:43)
[2019-12-02 12:23] LABS: Basophils # (A) 0.1 k/uL (0-0.2); Basophils % (A) 1 %; Eosinophils # (A) 0.2 k/uL (0-0.7); Eosinophils % (A) 3 %; HCT 39.9 % (34.0-46.0); Lymphocytes # (A) 1.9 k/uL (1.0-4.8); Lymphocytes % (A) 22 %; MCHC 32.7 g/dL (31.0-37.0); MCV 88.7 fL (80.0-100.0); Mean Platelet Volume 8.3; Monocytes # (A) 0.4 k/uL (0-1.0); Monocytes % (A) 5 %; Neutrophils # (A) 5.9 k/uL (1.3-7.7); Neutrophils % (A) 68 %; Platelet Count 293 k/uL (150-450); RDW 13.3 % (11.5-15.5); WBC 8.7 k/uL (3.8-10.6)
[2019-12-02 12:30] LABS: ALT 14 U/L (4-34); AST 20 U/L (14-36); African American GFR (CKD) >90 (>60 ml/min/1.73 sqM); Alkaline Phosphatase 69 U/L (38-126); Anion Gap 6 mmol/L; Blood Urea Nitrogen 6 mg/dL (7-17); Calcium 9.1 mg/dL (8.4-10.2); Carbon Dioxide 27 mmol/L (22-30); Chloride 106 mmol/L (98-107); Glucose 92 mg/dL (74-99); Non-African American GFR(CKD) >90 (>60 ml/min/1.73 sqM); Potassium 4.2 mmol/L (3.5-5.1); Sodium 139 mmol/L (137-145); Total Bilirubin 0.5 mg/dL (0.2-1.3); Total Protein 6.5 g/dL (6.3-8.2)
[2019-12-02] MEDS ORDERED: HEPARIN SODIUM,PORCINE 5,000 UNIT/ML 1 ML VIAL ONE (13:30)
[2019-12-02] MEDS ORDERED: HEPARIN SODIUM,PORCINE 5,000 UNIT/ML 1 ML VIAL SQ ONE (13:33)
[2019-12-02] MEDS ORDERED: MIDAZOLAM 2 MG/2 ML VIAL ONE (13:54)
[2019-12-02] MEDS ORDERED: PROPOFOL 10 MG/ML 20 ML VIAL IV ONE (13:54)
[2019-12-02] MEDS ORDERED: LIDOCAINE 1% INJ 10MG/ML (20 ML MDV) ONE (13:54)
[2019-12-02] MEDS ORDERED: ROCURONIUM 10 MG/ML (5 ML VIAL) IV ONE (13:54)
[2019-12-02] MEDS ORDERED: GLYCOPYRROLATE 0.2 MG/ML 2 ML VIAL ONE (13:54)
[2019-12-02] MEDS ORDERED: fentaNYL (PF) 50 MCG/ML 2 ML AMP ONE (13:54)
[2019-12-02] MEDS ORDERED: NEOSTIGMINE 1 MG/ML 10 ML VIAL ONE (13:54)
[2019-12-02] MEDS ORDERED: SUCCINYLCHOLINE CHLORIDE 100 MG/5 ML SYR IV ONE (13:54)
[2019-12-02] MEDS ORDERED: HYDROmorphone (PF) 1 MG/ML ONE (13:54)
[2019-12-02] MEDS ORDERED: LIDOCAINE 1%-EPI 1:100,000 20 ML VIAL SQ ONE (14:26)
[2019-12-02] MEDS ORDERED: HYDROmorphone 1 MG/ML 1 ML SYRINGE IVP PRN (16:15)
[2019-12-02] MEDS ORDERED: NALOXONE 0.4 MG/ML 1 ML VIAL IV PRN (16:15)
[2019-12-02] MEDS ORDERED: diphenhydrAMINE 50 MG/ML 1 ML VIAL IVP PRN (16:15)
[2019-12-02] MEDS ORDERED: LACTATED RINGERS 1,000 ML IV ONE ×2 (16:15)
--- NOTE | 2019-12-02 16:30 | P.OP ---
Date of Procedure: 12/02/19 Description of Procedure: SURGEON: HERNESTO CORTES MD PREOPERATIVE DIAGNOSES: 1. Gastroesophageal reflux disease, severe with erosive esophagitis 2. Paraesophageal hiatal hernia, midline. 3. History of sleeve gastrectomy 4. Dysphagia POSTOPERATIVE DIAGNOSES: 1. Gastroesophageal reflux disease, severe with erosive esophagitis 2. Paraesophageal hiatal hernia, midline, incarcerated and recurrent, 4 x 3 cm, type III 3. History of sleeve gastrectomy 4. Intra-abdominal peritoneal adhesions of omentum to epigastric abdominal wall, sleeve gastrectomy to the liver 5. Dysphagia OPERATION: 1. Robotic-assisted da Hilton Xi laparoscopic reduction and repair of recurrent incarcerated paraesophageal hiatal hernia, 4 x 3 cm, with [place] Biopatch A 8 x 8 cm. 2. Robotic-assisted da Hilton Xi laparoscopic extensive lysis of adhesions over 30 minutes 3. Intraoperative esophagogastroscopy 4. Placement of 56-Indonesian bougie ANESTHESIA: General with local anesthetic. ESTIMATED BLOOD LOSS: 5 mL Pathology: None COMPLICATIONS: None. FINDINGS: 1. Incarcerated upper pole of the stomach within the mediastinum with moderate dissection performed with resection of mediastinal hernia sac, type III paraesophageal hiatal hernia 2. 4 cm paraesophageal incarcerated diaphragmatic hiatal hernia. 3. [place] Biopatch A onlay mesh placed. 4. Reduction of incarcerated 4 cm superior pole of stomach from previously gastrectomy 5. GE junction at 35 cm from the incisors 6. Intra-abdominal esophageal length over 3 cm obtained 7. Severe intra-abdominal peritoneal adhesions of greater omentum and lesser omentum to abdominal wall including sleeve gastrectomy adherent to the undersurface of the liver INDICATIONS: The patient is a 44-year-old female who presents with epigastric abdominal pain, history of sleeve gastrectomy and gastroesophageal reflux recalcitrant to medical therapy with a symptomatic diaphragmatic hiatal hernia. Preoperative workup including upper endoscopy demonstrated hiatal hernia with erosive esophagitis. Given the severity of her symptoms, she had elected for surgical intervention. Benefits and risks including bleeding, infection, recurrence, dysphagia, injury to the lung, need for further surgery was described at length. Informed consent was obtained. DESCRIPTION: The patient was brought into the operating room and placed in supine position. Preoperatively she had received subcutaneously for DVT prophylaxis. After general induction, the abdomen was prepped and draped in standard sterile fashion. The patient had previously voided prior to coming to the operating room. Ioban draping was placed along the abdomen. A timeout protocol was confirmed with the surgical team, for which the patient's name, procedure to be performed including DVT prophylaxis with bilateral SCDs, and preoperative antibiotics were also confirmed. A robotic da Hilton Xi system was prepped and primed. At 13 cm inferior to the xiphoid, proposed port sites were marked with indelible marker along the left axillary line, left mid-clavicular line with each ports were marked 10 cm from each other. A 5 mm 0 degrees laparoscopic trocar entry was performed along the left upper quadrant. The abdomen was insufflated to 15 mmHg pressure was tolerated well. Diagnostic laparoscopy demonstrated no injury to bowel, viscera. Peritoneal adhesions involving the sleeve gastrectomy was found along the epigastrium and midline. Next, one 8 mm robotic port was placed along the right upper abdomen. An 8-mm port was were placed along the left lateral abdominal wall. The camera 8-mm port was maintained along the epigastrium. Another 12 mm port was placed along the left upper abdominal wall after exchanging the 5 mm port. Please note that the ports were placed at least 20 cm away from the target anatomy. Care was taken to check that each robotic arm were safely away from collision with the bed or the patient. The patient was repositioned in reverse Trendelenburg position at 21-degrees after lowering the bed. The robot was docked above the left side of the patie nt. Using a grasper for arm 3, a grasper for arm 1, including vessel sealer for arm 2, the robotic system was docked and primed as described. Instruments were interchanged by the trust manager assistant. I had sat at the console. Initial attention was brought to the peritoneal adhesions involving the greater omentum to the anterior abdominal wall of the epigastrium including midline and right including left upper quadrant. Using combination blunt dissection including vessel sealer for sharp dissection, lysis of adhesions over 30 minutes was performed. Separately, the sleeve was adherent to the undersurface of the left lobe of the liver requiring meticulous dissection without any gastrotomy. No bleeding had occurred along the liver dissection away from the sleeve gastrectomy. Dissection was carried to the hiatus circumferentially using vessel sealer including blunt dissection. To prevent any injury to the esophagus including proximal stomach, I performed an intraoperative upper endoscopy with the scope entering along the posterior oropharynx into the distal stomach and left in place as a bougie. The remnant gastrohepatic ligament was cleaved using a vessel sealer. Next, the phrenoesophageal ligament was mobilized and the distal esophagus was mobilized circumferentially. An incarcerated hernia sac was found into the mediastinum. As a result, deep dissection well into the mediastinum was needed to free the proximal sleeve gastrectomy including distal esophagus consistent with a type III hiatal hernia. The left and right crura was identified. Significant mobilization of the distal to mid esophagus into the mediastinum was performed. Circumferentially, the hernia sac was excised and brought into the abdominal cavity. Care was taken to avoid any gastrotomy to the incarcerated upper pole of the stomach. The measured defect was measured with a ruler consistent with 4 cm axial length and 3 cm in width. After extensive dissection, the distal esophagus at least 3 cm was brought into the abdominal cavity. Once the hiatus and crura was dissected, 2-0 VLOC suture was placed as a running suture to re-approximate the diaphragmatic hiatus posteriorly. To buttress the repair, a [place] Biopatch A was prepared along the back table and cut in a peterson-hole fashion as to reinforce the repair as an underlay. The mesh was resized posteriorly placed along the crural repair and tagged using 2-0 VLOC. I went to the head of the bed to perform intraoperative esophagogastroduodenoscopy. An Olympus gastroscope was passed through posterior oropharynx, where the hiatus repair was confirmed at 35 cm from the incisors. The stomach was entered including into the duodenum. No duodenal ulcers were found. The stomach had been desufflated. No evidence of leaks were found or mucosal defects of the esophagus or stomach. This concluded the endoscopic portion of the case. A 56-Indonesian bougie was placed through the posterior oropharynx into the stomach to address pre-existing esophageal dysphagia. The robot was undocked from the patient. I re-scrubbed into the case. All instruments and pneumoperitoneum were evacuated from the abdominal cavity. The incisions were cleansed with dilute hydrogen peroxide with saline solution. Incisions were reapproximated using 4-0 Monocryl in an interrupted subcuticular fashion. The 12-mm port site fascial defect was less than 8 mm in size. Exofinwas applied to the skin. Local anesthetic was infiltrated in all wounds for postop analgesia. Multiple intra-abdominal films were obtained. At the end of the procedure, needle, sponge, and instrument count was verified correct by the surgical scheduler. The patient had tolerated the procedure well and was taken to the postanesthesia unit in stable condition. Intraoperative films were reviewed with the patient's family who were pleased with the level of care. Console time: 69 minutes
[2019-12-02] MEDS: HYDROmorphone 0.5 MG/0.5 ML SYRINGE IVP PRN ×2 (16:37→16:46)
[2019-12-02] MEDS ORDERED: ACETAMINOPHEN TAB 500 MG TAB PO SCH (18:00)
[2019-12-02] MEDS: ACETAMINOPHEN ORAL SUSP 160 MG/5 ML CUP PO SCH (18:33)
[2019-12-02] MEDS: HYOSCYAMINE ORAL DROPS 1.875 MG/15 ML BOTTLE PO SCH (18:35)
[2019-12-02] MEDS: SIMETHICONE 40 MG/0.6 ML DROPS 2,000 MG/30 ML BOTTLE PO SCH (18:36)
[2019-12-02] MEDS: 0.9% NACL WITH KCL 20 MEQ/L 1,000 ML IV SCH (18:37)
[2019-12-02] MEDS: ONDANSETRON 4 MG/2 ML VIAL IVP SCH (18:37)
[2019-12-02] MEDS: KETOROLAC 15 MG/ML 1 ML VIAL IVP SCH (18:38)
[2019-12-02] MEDS: METOCLOPRAMIDE 5 MG/ML 2 ML VIAL IVP SCH (18:38)
[2019-12-02] MEDS ORDERED: ZOLPIDEM 5 MG TAB PO SCH (21:00)
[2019-12-03] MEDS: METOCLOPRAMIDE 5 MG/ML 2 ML VIAL IVP SCH ×3 (00:13→11:46)
[2019-12-03] MEDS: ACETAMINOPHEN ORAL SUSP 160 MG/5 ML CUP PO SCH ×3 (00:14→11:38)
[2019-12-03] MEDS: ONDANSETRON 4 MG/2 ML VIAL IVP SCH ×2 (00:14→06:05)
[2019-12-03] MEDS ORDERED: ONDANSETRON 4 MG/2 ML VIAL ONE ×3 (00:14)
[2019-12-03] MEDS: KETOROLAC 15 MG/ML 1 ML VIAL IVP SCH ×3 (00:14→11:42)
[2019-12-03] MEDS: 0.9% NACL WITH KCL 20 MEQ/L 1,000 ML IV SCH ×2 (00:15→06:06)
[2019-12-03] MEDS: HYOSCYAMINE ORAL DROPS 1.875 MG/15 ML BOTTLE PO SCH ×3 (00:23→11:35)
[2019-12-03] MEDS: SIMETHICONE 40 MG/0.6 ML DROPS 2,000 MG/30 ML BOTTLE PO SCH ×3 (00:23→11:37)
[2019-12-03] MEDS ORDERED: ENOXAPARIN 30 MG/0.3 ML SYRINGE SQ SCH (03:00)
[2019-12-03] MEDS: LACTATED RINGERS 1,000 ML IV SCH (06:15)
[2019-12-03] MEDS ORDERED: 0.9% NACL WITH KCL 20 MEQ/L 1,000 ML IV SCH (08:00)
[2019-12-03 08:08] LABS: Basophils % (A) 0 %; Eosinophils # (A) 0.1 k/uL (0-0.7); Eosinophils % (A) 1 %; HCT 33.6 % (34.0-46.0); HGB 10.6 gm/dL (11.4-16.0); Lymphocytes # (A) 1.8 k/uL (1.0-4.8); Lymphocytes % (A) 15 %; MCH 28.2 pg (25.0-35.0); MCHC 31.6 g/dL (31.0-37.0); MCV 89.3 fL (80.0-100.0); Mean Platelet Volume 8.2; Monocytes # (A) 0.5 k/uL (0-1.0); Monocytes % (A) 4 %; Neutrophils # (A) 9.8 k/uL (1.3-7.7); Neutrophils % (A) 80 %; Platelet Count 282 k/uL (150-450); RBC 3.77 m/uL (3.80-5.40); RDW 13.5 % (11.5-15.5); WBC 12.3 k/uL (3.8-10.6)
[2019-12-03 08:17] VITALS: RESP 16
[2019-12-03 08:22] LABS: African American GFR (CKD) >90 (>60 ml/min/1.73 sqM); Anion Gap 4 mmol/L; Blood Urea Nitrogen 6 mg/dL (7-17); Calcium 8.5 mg/dL (8.4-10.2); Carbon Dioxide 27 mmol/L (22-30); Chloride 108 mmol/L (98-107); Magnesium 1.8 mg/dL (1.6-2.3); Non-African American GFR(CKD) >90 (>60 ml/min/1.73 sqM); Phosphorus 2.7 mg/dL (2.5-4.5); Potassium 4.1 mmol/L (3.5-5.1); Sodium 139 mmol/L (137-145)
--- NOTE | 2019-12-03 08:50 | FL ---
EXAMINATION TYPE: FL esophagus cervic/pharynx DATE OF EXAM: 12/03/2019 LIMITED UGI-ESOPHAGRAM: CLINICAL HISTORY: Hernia and reflux, status post Pollo fundoplication surgery yesterday. TECHNIQUE: Limited esophagram is performed utilizing 20 oz of contrast. A total of 15 seconds of flu oroscopic time was utilized during procedure. 12 spot images saved to PACS. Comparison: Prior barium swallow study 11 days earlier. FINDINGS: The patient swallowed contrast without difficulty or delay. Esophageal peristalsis and mo tility are within normal limits. There is good flow of contrast along the diaphragmatic hiatus into t he stomach, there is no evidence of contrast extravasation to suggest leak. No persistent hiatal ching ia is seen. Patient remains asymptomatic before during and after procedure. Tiny amount of free air u nder right hemidiaphragm is presumed postsurgical. IMPRESSION: No evidence of leak or significant obstruction status post Pollo fundoplication surgery yesterday.
[2019-12-03] MEDS ORDERED: diphenhydrAMINE 50 MG/ML 1 ML VIAL IVP PRN (08:52)
[2019-12-03] MEDS ORDERED: PANTOPRAZOLE 40 MG/10 ML VIAL IV SCH (09:00)
[2019-12-03] MEDS ORDERED: amLODIPine 2.5 MG TAB PO SCH (09:00)
[2019-12-03] MEDS ORDERED: NALOXONE 0.4 MG/ML 1 ML VIAL IV PRN (10:08)
[2019-12-03 11:14] VITALS: BMI 29.9
[2019-12-03 11:59] VITALS: BP 135/81; PULSE 80; TEMP 98.5
[2019-12-03] MEDS ORDERED: ONDANSETRON 4 MG/2 ML VIAL IVP SCH (12:00)
--- NOTE | 2019-12-03 13:47 | P.DS ---
<Shalini Alfonso - Last Filed: 12/03/19 13:36> Providers Expected date of discharge: 12/03/19 Hospital Course: Discharge diagnosis 1. Gastroesophageal reflux disease, severe with erosive esophagitis 2. Paraesophageal hiatal hernia, midline, incarcerated and recurrent, 4 x 3 cm, type III 3. History of sleeve gastrectomy 4. Intra-abdominal peritoneal adhesions of omentum to epigastric abdominal wall, sleeve gastrectomy to the liver 5. Dysphagia Hospital course The patient is a 44-year-old female who presents with epigastric abdominal pain, history of sleeve gastrectomy and gastroesophageal reflux recalcitrant to medical therapy with a symptomatic diaphragmatic hiatal hernia. Patient underwent Robotic-assisted da Hilton Xi laparoscopic reduction and repair of recurrent incarcerated paraesophageal hiatal hernia, Robotic-assisted da Hilton Xi laparoscopic extensive lysis of adhesions, Intraoperative esophagogastroscopy and Placement of 56-Armenian bougie with Dr. Hewitt. Patient tolerated surgery well with no complications. Esophagram shows no evidence of leak or significant obstruction. She is tolerating clear liquid diet. She is passing gas. She is afebrile. She is up ambulating. She is stable for discharge home. She'll follow-up with Dr. Hewitt next Monday. Physician Extruder Operator Helper note has been reviewed by physician. Signing provider agrees with the documented findings, assessment, and plan of care. Patient Condition at Discharge: Good Plan - Discharge Summary Discharge Rx Participant: Yes New Discharge Prescriptions: New Hyoscyamine Oral Drops [Levsin Drops] 0.125 mg PO Q6HR ml amLODIPine [Norvasc] 2.5 mg PO DAILY tab Continue Zolpidem [Ambien] 5 mg PO HS Acetaminophen [Tylenol Extra Strength] 1,000 mg PO BID amLODIPine [Norvasc] 2.5 mg PO DAILY Discontinued Sucralfate [Carafate] 1 gm PO BID #60 tab Omeprazole [PriLOSEC] 40 mg PO DAILY PRN PRN Reason: GERD Discharge Medication List Zolpidem [Ambien] 5 mg PO HS 10/23/19 [History] Acetaminophen [Tylenol Extra Strength] 1,000 mg PO BID 11/19/19 [History] amLODIPine [Norvasc] 2.5 mg PO DAILY 12/02/19 [History] Hyoscyamine Oral Drops [Levsin Drops] 0.125 mg PO Q6HR ml 12/03/19 [Rx] amLODIPine [Norvasc] 2.5 mg PO DAILY tab 12/03/19 [Rx] Follow up Appointment(s)/Referral(s): Weston Rai DO [Primary Care Provider] - 11/25/20 Bariatric [place], [place] [NON-STAFF] - 12/11/19 2:00 pm Patient Instructions/Handouts: *[facility] - Managing Your Pain After Surgery Without Opioids, Pain Management After Surgery (DC), Laparoscopic Hiatal Hernia Repair (DC), Non-pharmacological Pain Management Therapies for Adults (GEN) Activity/Diet/Wound Care/Special Instructions: Liquid diet only. No carbonated beverages. No straws. No lifting over 4 pounds in 4 weeks, Jan 01. May shower. No bath tub soaks for 2 weeks until Dec 15 May take [id number] Tylenol for pain. (next dose due at 6:00 pm tonight) May take Levsin drops 1ml every 6 hours (next dose due at 6:00 pm tonight) May take Simethicone drops 0.6 ml every 6 hours (next dose due at 6:00 pm tonight) Discharge Disposition: HOME SELF-CARE <Priyanka Hewitt - Last Filed: 12/04/19 18:27> Providers Attending physician: Priyanka Hewitt Primary care physician: Weston Rai - Discharge Diagnosis(es) (1) Paraesophageal hernia with obstruction but no gangrene Status: Acute (2) Gastroesophageal reflux disease Status: Acute (3) History of sleeve gastrectomy Status: Acute (4) Peritoneal adhesions Status: Acute Hospital Course: Patient seen and evaluated with above. Please see additional findings below. HISTORY OF PRESENT ILLNESS: The patient is a 44-year-old female status post pass esophageal hiatal hernia repair including lysis of adhesions. She reports her gastroesophageal reflux disease is completely resolved. Her epigastric abdominal pain is completely resolved after surgery. She is tolerating liquids. She completed her esophagram. ROS: No reports of nausea and vomiting. No fevers or chills. No new chest pain. No productive sputum PHYSICAL EXAM: VITAL SIGNS: Reviewed CONSTITUTIONAL: Well developed and in no acute distress. EYES: Conjuctivae without sclera icterus. Extraocular movements grossly intact. HEAD, EARS, NOSE, THROAT: Moist buccal mucosa. Head is atraumatic, normoc ephalic. Hears conversational speech. No nasal drainage. NECK: Supple. No thyroidomegaly. RESPIRATORY: Non-labored respirations and equal bilateral excursions. CARDIOVASCULAR: Palpable 2+ radial pulses. Regular rate. Regular rhythm. ABDOMEN: Incisions clean dry and intact. Soft. No peritonitis. MUSCULOSKELETAL: No gross deformity of the lower extremities noted. No clubbing. No cyanosis. SKIN: Good skin turgor. Well perfused. NEUROLOGIC: Cranial nerves II through XII grossly intact. No focal or lateralizing signs. PSYCH: Appropriate affect. Alert and oriented to person, place and time. CLINICAL LABS: Reviewed ASSESSMENT: 1. Paraesophageal hiatal hernia 2. Status post sleeve gastrectomy PLAN: 1. I personally reviewed her pulse hiatal hernia diet which mimics the bar iatric postop diet including no carbonated beverages, no straws, high protein shake diet 2. Placement lifting restrictions of 4 pounds for 4 weeks also reviewed until January 01 3. Follow-up in the bariatric center also reviewed 4. Medical reconciliation also performed with discontinuance of Carafate and omeprazole Vital Signs Temp 98.5 F 12/03/19 11:57 Pulse 80 12/03/19 11:57 Resp 16 12/03/19 11:57 BP 135/81 12/03/19 11:57 Pulse Ox 100 12/03/19 11:57 Intake & Output 12/03/19 12/04/19 12/04/19 18:59 06:59 18:59 Intake Total 340 Output Total 375 Balance -35 Weight 68.3 kg Intake: Oral 340 Output: Urine 375 Other: Voiding Method Toilet # Voids 1 Laboratory Last Values WBC 12.3 k/uL (3.8-10.6) H 12/03/19 07:47 RBC 3.77 m/uL (3.80-5.40) L 12/03/19 07:47 Hgb 10.6 gm/dL (11.4-16.0) L 12/03/19 07:47 Hct 33.6 % (34.0-46.0) L 12/03/19 07:47 MCV 89.3 fL (80.0-100.0) 12/03/19 07:47 MCH 28.2 pg (25.0-35.0) 12/03/19 07:47 MCHC 31.6 g/dL (31.0-37.0) 12/03/19 07:47 RDW 13.5 % (11.5-15.5) 12/03/19 07:47 Plt Count 282 k/uL (150-450) 12/03/19 07:47 Neutrophils % 80 % 12/03/19 07:47 Lymphocytes % 15 % 12/03/19 07:47 Monocytes % 4 % 12/03/19 07:47 Eosinophils % 1 % 12/03/19 07:47 Basophils % 0 % 12/03/19 07:47 Neutrophils # 9.8 k/uL (1.3-7.7) H 12/03/19 07:47 Lymphocytes # 1.8 k/uL (1.0-4.8) 12/03/19 07:47 Monocytes # 0.5 k/uL (0-1.0) 12/03/19 07:47 Eosinophils # 0.1 k/uL (0-0.7) 12/03/19 07:47 Basophils # 0.0 k/uL (0-0.2) 12/03/19 07:47 Sodium 139 mmol/L (137-145) 12/03/19 07:47 Potassium 4.1 mmol/L (3.5-5.1) 12/03/19 07:47 Chloride 108 mmol/L (98-107) H 12/03/19 07:47 Carbon Dioxide 27 mmol/L (22-30) 12/03/19 07:47 Anion Gap 4 mmol/L 12/03/19 07:47 BUN 6 mg/dL (7-17) L 12/03/19 07:47 Creatinine 0.48 mg/dL (0.52-1.04) L 12/03/19 07:47 Est GFR (CKD-EPI)AfAm >90 (>60 ml/min/1.73 sqM) 12/03/19 07:47 Est GFR (CKD-EPI)NonAf >90 (>60 ml/min/1.73 sqM) 12/03/19 07:47 Glucose 92 mg/dL (74-99) 12/02/19 11:40 Calcium 8.5 mg/dL (8.4-10.2) 12/03/19 07:47 Phosphorus 2.7 mg/dL (2.5-4.5) 12/03/19 07:47 Magnesium 1.8 mg/dL (1.6-2.3) 12/03/19 07:47 Total Bilirubin 0.5 mg/dL (0.2-1.3) 12/02/19 11:40 AST 20 U/L (14-36) 12/02/19 11:40 ALT 14 U/L (4-34) 12/02/19 11:40 Alkaline Phosphatase 69 U/L (38-126) 12/02/19 11:40 Total Protein 6.5 g/dL (6.3-8.2) 12/02/19 11:40 Albumin 4.0 g/dL (3.5-5.0) 12/02/19 11:40 Blood Type A Negative 11/26/19 12:41 Blood Type Recheck A Neg 11/26/19 12:41 Bld Type Recheck Status No 11/26/19 12:41 Antibody Screen NEGATIVE 11/26/19 12:41 Spec Expiration Date 12/04/2019 - 234011/26/19 12:41 Pertinent Studies: Esophagram personally reviewed demonstrating no recurrent hiatal hernia or obstruction Procedures: OPERATION: 1. Robotic-assisted da Hilton Xi laparoscopic reduction and repair of recurrent incarcerated paraesophageal hiatal hernia, 4 x 3 cm, with [place] Biopatch A 8 x 8 cm. 2. Robotic-assisted da Hilton Xi laparoscopic extensive lysis of adhesions over 30 minutes 3. Intraoperative esophagogastroscopy 4. Placement of 56-Armenian bougie ANESTHESIA: General with local anesthetic. ESTIMATED BLOOD LOSS: 5 mL Pathology: None COMPLICATIONS: None. FINDINGS: 1. Incarcerated upper pole of the stomach within the mediastinum with moderate dissection performed with resection of mediastinal hernia sac, type III paraesophageal hiatal hernia 2. 4 cm paraesophageal incarcerated diaphragmatic hiatal hernia. 3. Alpha Biopatch A onlay mesh placed. 4. Reduction of incarcerated 4 cm superior pole of stomach from previously gastrectomy 5. GE junction at 35 cm from the incisors 6. Intra-abdominal esophageal length over 3 cm obtained 7. Severe intra-abdominal peritoneal adhesions of greater omentum and lesser omentum to abdominal wall including sleeve gastrectomy adherent to the undersurface of the liver
[2019-12-04] MEDS ORDERED: bisacodyL 5 MG TABLET.DR PO PRN (08:00)
== END 2019-12-03 13:50 | disposition home or self-care (01) ==
LOC: OR 10:45 → 6PED 16:08 → OR 12-03 13:50
PROVIDERS: ATTEND Surgery Plastic and Reconstructive Surgery
DX: K44.0 Diaphragmatic hernia with obstruction, without gangrene (principal); K21.0 Gastro-esophageal reflux disease with esophagitis; K22.10 Ulcer of esophagus without bleeding; K66.0 Peritoneal adhesions (postprocedural) (postinfection); I10 Essential (primary) hypertension; Z98.84 Bariatric surgery status; Z79.891 Long term (current) use of opiate analgesic; Z79.899 Other long term (current) drug therapy; Z86.32 Personal history of gestational diabetes; Z98.51 Tubal ligation status; Z98.891 History of uterine scar from previous surgery; Z98.890 Other specified postprocedural states
CPT/HCPCS: 81025; 86900; 86901; 80051; 80053; 82310; 82565; 83735; 84100; 84520; 85025 ×2; 86850; 74210; 36415; 43282; C1781; J2250; J1644; J1100; J2710; J2765 ×2; J0690 ×2; J2405 ×2; J2001; J3010; J1650; J1170 ×2; J1885 ×2; J0330; J2704; C9113 ×2; Q9967

== ENCOUNTER → 2020-02-07 | Outpatient (CLI) | payer BC ==
--- NOTE | 2020-02-11 08:43 | MM ---
Reason for exam: screening (asymptomatic). Last mammogram was performed 6 years and 6 months ago. History: Family history of breast cancer in 2 paternal aunts at age 30. Took hormonal contraceptives for 3 years. Physical Findings: A clinical breast exam by your physician is recommended on an annual basis and results should be correlated with mammographic findings. MG Screening Mammo w CAD Bilateral CC and MLO view(s) were taken. Prior study comparison: August 12, 2013, bilateral MG screening mammo w CAD. February 01, 2013, CAD bilateral diagnostic mammogram. The breast tissue is heterogeneously dense. This may lower the sensitivity of mammography. No significant changes when compared with prior studies. ASSESSMENT: Negative, BI-RAD 1 RECOMMENDATION: Routine screening mammogram of both breasts in 1 year.
== END | disposition home or self-care (01) ==
LOC: RADMAMWWP 14:46
PROVIDERS: ATTEND Obstetrics & Gynecology
DX: Z12.31 Encounter for screening mammogram for malignant neoplasm of breast (principal); Z80.3 Family history of malignant neoplasm of breast
CPT/HCPCS: 77067

== ENCOUNTER → 2021-07-21 | Outpatient (CLI) | payer BC ==
--- NOTE | 2021-07-23 09:52 | MM ---
Reason for exam: screening (asymptomatic). Last mammogram was performed 1 year and 5 months ago. History: Family history of breast cancer in 2 paternal aunts at age 30. Took hormonal contraceptives for 3 years. Physical Findings: A clinical breast exam by your physician is recommended on an annual basis and results should be correlated with mammographic findings. MG Screening Mammo w CAD Bilateral CC and MLO view(s) were taken. Prior study comparison: February 07, 2020, bilateral MG screening mammo w CAD. August 12, 2013, bilateral MG screening mammo w CAD. The breast tissue is heterogeneously dense. This may lower the sensitivity of mammography. New calcifications 3 o'clock left breast. A couple asymmetric densities left breast are more defined. ASSESSMENT: Incomplete: need additional imaging evaluation, BI-RAD 0 RECOMMENDATION: Special view mammogram of the left breast. (3D and magnification views) If lesion persists on supplemental views, image directed ultrasound is recommended. [facility] will attempt to contact patient to return for supplemental views and ultrasound if indicated.
== END | disposition home or self-care (01) ==
LOC: RADMAMWWP 16:45
PROVIDERS: ATTEND Obstetrics & Gynecology
DX: Z12.31 Encounter for screening mammogram for malignant neoplasm of breast (principal)
CPT/HCPCS: 77067

== ENCOUNTER → 2021-07-27 | Outpatient (CLI) | payer BC ==
--- NOTE | 2021-07-28 09:14 | MM ---
Reason for exam: additional evaluation requested from abnormal screening. Last mammogram was performed less than 1 month ago. History: Family history of breast cancer in 2 paternal aunts at age 30. Took hormonal contraceptives for 3 years. Physical Findings: A clinical breast exam by your physician is recommended on an annual basis and results should be correlated with mammographic findings. MG 3D Work Up W/Cad LT Spot compression CC, spot compression MLO, LM, CC with magnification, and LM with magnification view(s) were taken of the left breast. Prior study comparison: July 21, 2021, bilateral MG screening mammo w CAD. February 07, 2020, bilateral MG screening mammo w CAD. Finding: There are 7 heterogeneous, grouped/clustered calcifications in the outer quadrant, middle position of the left breast on CC and mid MLO view. Left breast focal density disperses on compression. New finding since July 21, 2021 and February 07, 2020. Results were given to the patient verbally at the time of the exam. ASSESSMENT: Suspicious, BI-RAD 4 RECOMMENDATION: Stereotactic core biopsy of the left breast. (left breast calcifications) Called Dr. Jeong's office with mammographic findings and has scheduled an appointment for the patient for 09/15/21 at 4:[address] Lugo. Biopsy scheduled for 08/13/21 at 10:00. PRELIMINARY REPORT CALLED AND FAXED TO DR. LUGO ON 07/28/21.
== END | disposition home or self-care (01) ==
LOC: RADMAMWWP 14:50
PROVIDERS: ATTEND Obstetrics & Gynecology
DX: R92.8 Other abnormal and inconclusive findings on diagnostic imaging of breast (principal)
CPT/HCPCS: 77061; 77065

== ENCOUNTER → 2021-08-13 | Day surgery (SDC) | payer BC ==
[2021-08-13 08:08] VITALS: RESP 16
[2021-08-13 09:06] VITALS: BP 150/88; PULSE 67; TEMP 98.1
--- NOTE | 2021-08-13 12:13 | MM ---
Stereotactic Mammotome core biopsy left breast. HISTORY: calcifications The calcifications in question within the left breast were targeted by the undersigned. Procedure was performed by the undersigned. Informed consent was obtained and all of the patients questions were answered. The standard sterile technique was utilized and appropriate local anesthesia was obtained with 1% lidocaine. Mammotome probe was advanced and multiple core samples were obtained and sent to pathology for interpretation. Microclip marker was deployed at the site of biopsy. Post procedural mammogram demonstrates appropriate deployment of radiopaque clip marker. The patient tolerated the procedure well and left the department in stable condition. Pathology results are pending. IMPRESSION: Successful stereotactic core biopsy left breast with pathology results pending. Pathology Results: High Risk LEFT BREAST, STEREOTACTIC NEEDLE CORE BIOPSY: Focal atypical ductal hyperplasia (ADH) with associated calcifications arising in background fibrocystic changes. See note. Recommendation Surgical consult of the left breast. ARTIE
== END ==
LOC: RADMAMWWP 07:45
PROVIDERS: ATTEND Surgery
DX: N60.12 Diffuse cystic mastopathy of left breast (principal)
CPT/HCPCS: 19081; 88305; A4648; J2001

== ENCOUNTER 2021-09-17 07:57 | Day surgery (SDC) | payer BC ==
[2021-09-16 10:36] VITALS: BMI 27.8
[~2021-09-17 07:57] MED LIST changes: -CHLORHEXIDINE GLUCONATE 15 ML CUP MUCOUS MEM ONE; -DEXAMETHASONE SOD PHOSPHATE 10 MG/ML 1 ML VIAL IV ONE; +DEXAMETHASONE SOD PHOSPHATE 4 MG/ML 1 ML VIAL IV ONE; -GABAPENTIN 300 MG CAP PO STA; +HEPARIN SODIUM,PORCINE/PF 5,000 UNIT/0.5 ML SYRINGE SQ PRN; +HYDROmorphone 0.5 MG/0.5 ML SYRINGE IVP PRN; +LACTATED RINGERS 1,000 ML IV SCH; +MIDAZOLAM 2 MG/2 ML VIAL IV PRN; -PANTOPRAZOLE 40 MG/10 ML VIAL IV STA; +Pre Op ABX Message 1 EACH MISC MISCELLANE ONE; -SCOPOLAMINE 1.5MG/72HR PATCH TRANSDERM ONE; -SCOPOLAMINE 1.5MG/72HR PATCH TRANSDERM STA
[2021-09-17] MEDS ORDERED: ALPRAZolam 0.5 MG TAB ONE (08:26)
[2021-09-17] MEDS ORDERED: ALPRAZolam 0.5 MG TAB PO ONE (08:39)
[2021-09-17 09:22] VITALS: TEMP 98.3
[2021-09-17] MEDS ORDERED: LIDOCAINE 1% (10MG/ML) FOR IV START SQ ONE (09:55)
[2021-09-17] MEDS ORDERED: SODIUM CHLORIDE 0.9% 50 ML with ceFAZolin 2,000 MG IV ONE ×2 (10:50)
[2021-09-17] MEDS ORDERED: PROPOFOL 10 MG/ML 20 ML VIAL IV ONE (10:51)
[2021-09-17] MEDS ORDERED: MIDAZOLAM 2 MG/2 ML VIAL ONE (10:51)
[2021-09-17] MEDS ORDERED: KETAMINE 10 MG/ML 20 ML VIAL ONE (10:51)
[2021-09-17] MEDS ORDERED: fentaNYL (PF) 50 MCG/ML 2 ML AMP ONE (10:51)
[2021-09-17] MEDS ORDERED: BUPIVACAINE (PF) 0.25% 30 ML VIAL SQ ONE ×2 (11:11→11:19)
[2021-09-17] MEDS ORDERED: NALOXONE 0.4 MG/ML 1 ML VIAL IV PRN (11:49)
[2021-09-17] MEDS ORDERED: HYDROcodone/APAP 5-325MG 1 EACH TAB PO PRN (11:50)
--- NOTE | 2021-09-17 11:52 | P.OP ---
Date of Procedure: 09/17/21 Procedure(s) Performed: PREOPERATIVE DIAGNOSIS: Abnormal left mammogram POSTOPERATIVE DIAGNOSIS: Same PROCEDURE: Left Breast wire localization biopsy SURGEON: Brittney EBL: Minimal ANESTHESIA: General plus local COMPLICATIONS: None OPERATIVE PROCEDURE: Patient was placed on the operating room table in the supi ne position. The patient's breast was prepped and draped in usual sterile fashion. A curvilinear incision was made adjacent to the wire entrance site. I followed the wire down into the breast tissue. The breast tissue around the tip of the wire was fully excised using electrocautery. The hematoma was included as a portion of the specimen. The specimen was sent for specimen radiogram. The clip was present within the specimen. The subcutaneous tissues were inspected. No bleeding was seen. The subcutaneous tissues were closed using 3- 0 Vicryl sutures. The skin was closed using a running 4-0 Monocryl stitch. Skin glue and sterile dressings were applied. DISPOSITION: Stable to recovery room
[2021-09-17] MEDS ORDERED: HYDROcodone/APAP 5-325MG 1 EACH TAB PO ONE (12:18)
[2021-09-17 12:47] VITALS: BP 138/86; PULSE 86; RESP 18
== END 2021-09-17 12:56 | disposition home or self-care (01) ==
LOC: OR 07:57
PROVIDERS: ATTEND Surgery
DX: N60.92 Unspecified benign mammary dysplasia of left breast (principal)
CPT/HCPCS: 19281; 81025; 88307; 76098; C1819; J2250; J1100; J2405; J0690; J3010; J2704; J1644

== ENCOUNTER → 2022-02-11 | Outpatient (CLI) | payer OTHER ==
--- NOTE | 2022-02-14 08:06 | BMR ---
EXAMINATION TYPE: MR breast BILAT wo/w con DATE OF EXAM: 02/11/2022 COMPARISON: Screening mammogram July 21, 2021 BI-RADS 0. Left breast diagnostic mammogram July 27, 2021 BI-RADS 4. 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 Stereotactic guided core biopsy left breast August 13, 2021 w ith ADH. Subsequent needle localization with excision biopsy September 17, 2021 with benign results. TECHNIQUE: A series of fat and water weighted images in the long and short axis views of both breasts are obtained in conjunction with dynamic contrast MRI with subtraction technique. The patient was i njected with 7 mL intravenous Gadavist gadolinium contrast. Three-dimensional and additional postpr ocessing imaging is created on independent workstation and reviewed during official interpretation of this study. FINDINGS: Heterogeneously dense fibroglandular tissue throughout bilateral breasts is redemonstrated. Benign-appearing bilateral axillary lymph nodes are present. No concerning cystic masses or fluid co llections noted in either breast. Dynamic postcontrast imaging shows mild background enhancement. Yo e tiny areas of nodular enhancement are present on background dense tissue bilaterally. Delayed dynam ic imaging shows no suspicious intramammary adenopathy bilaterally. With regards to the right breast, there is no abnormal skin thickening is seen. No pathologic enhance ment or enhancing masses are noted. Chest wall is intact. With regards to left breast there is distortion from excisional change along the lateral aspect. No a bnormal skin thickening is seen. No pathologic enhancement or enhancing masses noted. Chest wall is i ntact. IMPRESSION: Posttreatment changes to left breast. No MRI evidence for invasive malignancy in either b reast. BI-RADS 2 benign findings bilaterally. Recommendation: Patient to for bilateral breast mammogram July 2022. Advise continued annual MRI doris veillance of high risk patient. Correlate clinically.
== END | disposition home or self-care (01) ==
LOC: RADMRIMAIN 08:15
PROVIDERS: ATTEND Internal Medicine Hematology & Oncology
DX: Z14.8 Genetic carrier of other disease (principal); N60.92 Unspecified benign mammary dysplasia of left breast
CPT/HCPCS: 77049; A9585

== ENCOUNTER → 2022-04-11 | Outpatient (CLI) | payer SELFPAY ==
[2022-04-11 14:12] LABS: Basophils # (A) 0.05 X 10*3/uL (0.00-0.10); Basophils % (A) 0.7 %; Eosinophils # (A) 0.13 X 10*3/uL (0.04-0.35); Eosinophils % (A) 1.8 %; HCT 40.5 % (37.2-46.3); HGB 12.9 g/dL (12.0-15.0); Immature Grans, Automated 0.4 %; Lymphocytes # (A) 1.69 X 10*3/uL (0.90-5.00); Lymphocytes % (A) 23.5 %; MCH 29.3 pg (27.0-32.0); MCHC 31.9 g/dL (32.0-37.0); Mean Platelet Volume 11.2 fL (9.5-12.2); Monocytes # (A) 0.44 X 10*3/uL (0.20-1.00); Monocytes % (A) 6.1 %; NRBC Per 100 WBC 0 /100 WBCS (0.0-0.0); Neutrophils # (A) 4.84 X 10*3/uL (1.80-7.70); Neutrophils % (A) 67.5 %; Platelet Count 325 X 10*3/uL (140-440); RDW 12.7 % (11.5-14.5); WBC 7.18 X 10*3/uL (4.50-10.00)
[2022-04-11 14:44] LABS: African American GFR (CKD) 136.4 (60.0-200.0); Anion Gap 9.6 mmol/L (10.00-18.00); BUN/Creat Ratio 16.4 Ratio (12.00-20.00); Blood Urea Nitrogen 8.2 mg/dL (9.0-27.0); Calcium 9.2 mg/dL (8.7-10.3); Carbon Dioxide 26.4 mmol/L (20.0-27.5); Non-African American GFR(CKD) 117.7 (60.0-200.0); Potassium 4.2 mmol/L (3.5-5.5)
== END | disposition home or self-care (01) ==
LOC: LABPAT 08:25
PROVIDERS: ATTEND Obstetrics & Gynecology
DX: Z01.812 Encounter for preprocedural laboratory examination (principal)
CPT/HCPCS: 36415; 80048; 85025

== ENCOUNTER 2022-04-18 05:37 | Day surgery (SDC) | payer BC, OTHER ==
--- NOTE | 2022-04-17 15:11 | P.HPOB ---
History of Present Illness H&P Date: 04/17/22 Chief Complaint: BRCA+ gene mutation, prophylactic oophorectomy This is a 46 y.o. female, 3, para 2, who presents for laparoscopic bilateral salpingooophorectomy via Davinci due to +BRCA-1 gene mutation. Her oncologist has recommended prophylactic oophorectomy due to her risk of ovarian cancer. She denies any current menopausal symptoms. She has a history of 2 previous sections and an endometrial ablation. 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 Pelvic ultrasound shows uterus measuring 8.2 x 5.1 x 2.9 cm, both ovaries normal, with small simple cysts, left ovary with 2 cysts about 2.6 cm. OB Hx: History of 2 previous sections. 1 miscarriage. [place] Attorney Hx: History of LEEP. History of tubal ligation and endometrial ablation. Social Hx: . Works full-time, manufacturing. Review of Systems Constitutional: Denies chills, Denies fever Eyes: denies blurred vision, denies pain Ears, nose, mouth and throat: Denies headache, Denies sore throat Cardiovascular: Denies chest pain, Denies shortness of breath Respiratory: Denies cough Gastrointestinal: Denies abdominal pain, Denies diarrhea, Denies nausea, Denies vomiting Genitourinary: Denies dysuria, Denies hematuria Menstruation: Reports amenorrhea Musculoskeletal: Denies myalgias Integumentary: Denies pruritus, Denies rash Neurological: Denies numbness, Denies weakness Psychiatric: Reports anxiety, Reports depression Endocrine: Denies fatigue, Denies weight change Past Medical History Past Medical History: GERD/Reflux, Hypertension Additional Past Medical History / Comment(s): 2004 gestational diabetes. No menses since ablation 2011 est. recent biospy recommended by oncologist to have ovaries and tubes removed.( hx of breast cancer in family) History of Any Multi-Drug Resistant Organisms: None Reported Past Surgical History: Bariatric Surgery, Section, Hernia Repair, Tubal Ligation, Uterine Ablation Additional Past Surgical History / Comment(s): UTERINE ABLATION. LEEP procedure. TUBAL LIGATION 11-11-2004. Hiatal hernia repair. 11/11/13 gastric sleeve Past Anesthesia/Blood Transfusion Reactions: No Reported Reaction Additional Past Anesthesia/Blood Transfusion Reaction / Comment(s): no blood transfusions Past Psychological History: Anxiety, Depression Smoking Status: Never smoker Past Alcohol Use History: None Reported Past Drug Use History: None Reported - Past Family History Mother Family Medical History: Hypertension Father Family Medical History: Hypertension Additional Family Medical History / Comment(s): (Paternal aunts x3 - breast cancer) Medications and Allergies Home Medications Medication Instructions Recorded Confirmed Type Zolpidem [Ambien] 5 mg PO HS 10/23/19 04/18/22 History amLODIPine [Norvasc] 2.5 mg PO DAILY 12/02/19 04/18/22 History L.acidoph,Paracasei, B.lactis 1 each PO DAILY 09/16/21 04/18/22 History [Probiotic] Venlafaxine HCl ER [Effexor Xr] 37.5 mg PO DAILY 04/15/22 04/18/22 History Allergies Allergy/AdvReac Type Severity Reaction Status Date / Time No Known Allergies Allergy Verified 04/18/22 06:06 Exam Osteopathic Statement: *. No significant issues noted on an osteopathic structural exam other than those noted in the History and Physical/Consult. HEENT: within normal limits Heart: regular rate and rhythm Lungs: clear to auscultation bilaterally Abdomen: soft, non-tender Pelvic: uterus, small, anteverted, non-tender, no adnexal masses or tenderness Extremities: neg. Bernice's Assessment and Plan (1) BRCA gene mutation positive in female Current Visit: No Status: Acute Code(s): Z15.01 - GENETIC SUSCEPTIBILITY TO MALIGNANT NEOPLASM OF BREAST; Z15.02 - GENETIC SUSCEPTIBILITY TO MALIGNANT NEOPLASM OF OVARY; Z15.09 - GENETIC SUSCEPTIBILITY TO OTHER MALIGNANT NEOPLASM SNOMED Code(s): 775910857 Plan: Proceed with laparoscopic bilateral salpingooophorectomy with Davinci, possible laparotomy, possible diagnostic cystoscopy. I have discussed the risks, benefits, and alternative therapies for the above- mentioned procedure and for both sedation/anesthesia as well as necessary blood products administration, if indicated, as they pertain to this patient. The patient has indicated her understanding and acceptance of the risks and procedures discussed.
[2022-04-18] MEDS ORDERED: DEXAMETHASONE SOD PHOSPHATE 4 MG/ML 1 ML VIAL IV ONE (05:56)
[2022-04-18] MEDS ORDERED: LACTATED RINGERS 1,000 ML IV SCH (05:56)
[2022-04-18] MEDS ORDERED: ONDANSETRON 4 MG/2 ML VIAL IVP ONE (05:56)
[2022-04-18] MEDS ORDERED: MIDAZOLAM 2 MG/2 ML VIAL IV PRN (05:56)
[2022-04-18] MEDS ORDERED: SCOPOLAMINE 1 MG/72 HR PATCH TRANSDERM ONE (05:56)
[2022-04-18] MEDS ORDERED: ROCURONIUM 10 MG/ML (5 ML VIAL) IV ONE (07:12)
[2022-04-18] MEDS ORDERED: SUCCINYLCHOLINE CHLORIDE 200 MG/10 ML VIAL IV ONE (07:12)
[2022-04-18] MEDS ORDERED: KETOROLAC 15 MG/ML 1 ML VIAL ONE (07:12)
[2022-04-18] MEDS ORDERED: LIDOCAINE 2% INJ 20 MG/ML (2 ML VIAL) ONE (07:12)
[2022-04-18] MEDS ORDERED: NEOSTIGMINE 1 MG/ML 10 ML VIAL ONE (07:12)
[2022-04-18] MEDS ORDERED: fentaNYL (PF) 50 MCG/ML 2 ML AMP ONE (07:12)
[2022-04-18] MEDS ORDERED: hydrALAZINE HCL 20 MG/ML 1 ML VIAL ONE (07:12)
[2022-04-18] MEDS ORDERED: KETAMINE 10 MG/ML 20 ML VIAL ONE (07:12)
[2022-04-18] MEDS ORDERED: LIDOCAINE 4% LTA KIT (4 ML) TOPICAL ONE (07:12)
[2022-04-18] MEDS ORDERED: PROPOFOL 10 MG/ML 20 ML VIAL IV ONE (07:12)
[2022-04-18] MEDS ORDERED: GLYCOPYRROLATE 0.2 MG/ML 2 ML VIAL ONE (07:12)
[2022-04-18] MEDS ORDERED: MIDAZOLAM 2 MG/2 ML VIAL ONE (07:12)
[2022-04-18] MEDS ORDERED: BUPIVACAINE (PF) 0.25% 30 ML VIAL SQ ONE ×2 (07:47→08:24)
[2022-04-18] MEDS ORDERED: LACTATED RINGERS 1,000 ML IV ONE (08:19)
[2022-04-18 08:44] VITALS: TEMP 97.1
--- NOTE | 2022-04-18 08:51 | P.OP ---
Date of Procedure: 04/18/22 Preoperative Diagnosis: Positive BRCA1 gene mutation Postoperative Diagnosis: Same Omental adhesions Procedure(s) Performed: Laparoscopic bilateral salpingo-oophorectomy with da Hilton and lysis of adhesions Anesthesia: GUADALUPE Surgeon: Karuna Mack Appetizer Packer #1: Maday Jennings Estimated Blood Loss (ml): 5 Pathology: other (Bilateral tubes with ovaries) Condition: stable Disposition: same day Indications for Procedure: This is a 46 y.o. female, 3, para 2, who presents for laparoscopic bilateral salpingooophorectomy via Davinci due to +BRCA-1 gene mutation. Her oncologist has recommended prophylactic oophorectomy due to her risk of ovarian cancer. She denies any current menopausal symptoms. She has a history of 2 previous sections and an endometrial ablation. 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 Pelvic ultrasound shows uterus measuring 8.2 x 5.1 x 2.9 cm, both ovaries normal, with small simple cysts, left ovary with 2 cysts about 2.6 cm. Operative Findings: Uterus is normal in contour. Omental adhesions are noted to the anterior abdominal wall and to the uterus and ovaries bilaterally. Both ovaries appear small with normal follicles. Both tubes appeared normal with evidence of previous tubal ligation. Description of Procedure: The patient is taken to the operating room she's placed in a dorsal lithotomy position on a Huggie board. Her arms were tucked at her sides and her shoulders are padded. A weighted speculum was placed in the patient's vagina and a right angle retractor was used to visualize the anterior lip the cervix. The anterior lip of the cervix is grasped with a single-tooth tenaculum. Cervix is gently dilated with Montoya dilators until a sound could be passed. Uterus is sounded to 6 cm. A kroner uterine manipulator is then inserted through the cervix and the balloon was inflated. Next the single-tooth tenaculum is removed and the speculum was removed. A Finn catheter was then placed. Gloves are changed and then attention is turned to the abdomen. The uterus is anteverted and marked on the abdomen. Next a small incision is made approximately 8 cm above the top of the uterus just above the umbilicus with the scalpel. A 5 mm labor this disposable trocar is then placed under direct visualization using low flow to the abdomen. Once inside the intra-abdominal cavity, the insert is removed and the camera was replaced. No bleeding is noted. High flow was then obtained. Next an incision is made in the right side of the abdomen approximately 8 cm lateral to the umbilicus and then an 8 mm da Hilton trocar is placed under direct visualization. The same procedure is carried out on the left side of the abdomen. Next an incision is made in the left upper quadrant approximately 6 cm away from both the supraumbilical and left trocar sites and then a 12 mm disposable bladeless trochars inserted under direct visualization. Next the 5 mm midline trocar is removed and replaced with an 8 mm da Hilton trocar. Da Hilton robot is then docked to the patient from the left side of the patient. Trochars are attached to the robot arms. A smoke evacuator is attached to one of the trocar sites. The camera is inserted and omental adhesions are noted in the midline. A monopolar scissor with energy is placed in the right port and a [place] grasper is placed in the left port with energy. I broke scrub at this time and went to the console. Using both bipolar and monopolar cautery I was able to take down the omental adhesions in the midline using the da Hilton. Once the adhesions were freed I was able to visualize the tubes and ovaries. Both tubes and ovaries appeared fairly normal with small follicle cysts noted. Evidence of previous tubal ligation was also noted. The assistant corporate secretary was able to grasp the end of the fallopian tube on the left side and bipolar energy was applied to the infundibulopelvic ligament and the mesosalpinx. Monopolar energy was used to cut along this area. Next the uterine ovarian ligament and tube were cauterized with bipolar energy right next to the uterus to free the tube and ovary. This was placed behind the uterus and the area of removal was inspected for any bleeding. Good hemostasis was noted. The same procedure is carried out on the right tube and ovary. Using bipolar and monopolar energy to cauterize and cut. Once this ovary was freed the area left behind was also inspected and cauterized for any bleeders. Excellent hemostasis was noted. A picture was taken at the end. Next Endo catch sack was placed through the assistant corporate secretary port and both tubes and ovaries were placed in the sac and then brought through the assistant corporate secretary port with slight extension of the incision. Next pneumoperitoneum is released and the instruments are removed. Camera was also removed. Incision sites are then sutured with 4-0 Vicryl suture in subcuticular fashion. There then injected with quarter percent Marcaine. Approximately 10 mL are used. Next the incisions are dressed with Steri-Strips and bandages. The Finn catheter is removed with clear urine noted. The uterine manipulator is also deflated and removed with minimal bleeding noted. All sponge and needle counts are correct. The patient is then taken to recovery room in stable condition.
[2022-04-18] MEDS: HYDROmorphone 0.5 MG/0.5 ML SYRINGE IVP PRN ×2 (09:37→09:54)
[2022-04-18 10:51] VITALS: RESP 16
[2022-04-18 11:48] VITALS: BP 140/78; PULSE 86
== END 2022-04-18 11:55 | disposition home or self-care (01) ==
LOC: OR 05:37
PROVIDERS: ATTEND Obstetrics & Gynecology
DX: Z15.01 Genetic susceptibility to malignant neoplasm of breast (principal); N73.6 Female pelvic peritoneal adhesions (postinfective); I10 Essential (primary) hypertension; K21.9 Gastro-esophageal reflux disease without esophagitis; F32.A Depression, unspecified; F41.9 Anxiety disorder, unspecified; Z15.02 Genetic susceptibility to malignant neoplasm of ovary; Z15.09 Genetic susceptibility to other malignant neoplasm; Z80.3 Family history of malignant neoplasm of breast; Z82.49 Family history of ischemic heart disease and other diseases of the circulatory system; Z98.890 Other specified postprocedural states; Z79.899 Other long term (current) drug therapy
CPT/HCPCS: 81025; 86900; 86901; 86850; 58661; J2250; J0330; J0360; J1100; J2710; J0690; J2405; J3010; J1885; J2704; J1170; J2001; 88305

== ENCOUNTER → 2022-07-25 | Outpatient (CLI) | payer BC ==
--- NOTE | 2022-07-25 11:19 | MM ---
Reason for Exam: Additional evaluation requested from prior study. Last screening mammogram was performed 12 month(s) ago. Patient History: Menarche at age 14. First Full-Term at age 27. Patient used Hormonal Contraceptives for 3 years. 09/17/2021, Benign MG pre op needle loc LT on the left side. 08/13/2021, High risk Core Biopsy on the left side. Paternal aunt had breast cancer, age 30. Paternal aunt had breast cancer, age 30. Risk Values: Pricilla 5 year model risk: 2.4%. NCI Lifetime model risk: 16.4%. Prior Study Comparison: 02/07/2020 Bilateral Screening Mammogram, [facility]. 07/21/2021 Bilateral Screening Mammogram, [facility]. 07/27/2021 Left Diagnostic Mammogram, [facility]. Tissue Density: The breast tissue is heterogeneously dense. This may lower the sensitivity of mammography. Findings: Analyzed By CAD. Postoperative lumpectomy changes left breast. No residual or new microcalcifications. No evidence for mass within either breast. Overall Assessment: Benign, BI-RAD 2 Management: Diagnostic Mammogram of both breasts in 1 year. A clinical breast exam by your physician is recommended on an annual basis and results should be correlated with mammographic findings. This exam should not preclude additional follow-up of suspicious palpable abnormalities. Results were given to the patient verbally at the time of exam. Electronically signed and approved by: Sadi Bell M.D. Radiologis
== END | disposition home or self-care (01) ==
LOC: RADMAMWWP 10:50
PROVIDERS: ATTEND Surgery
DX: R92.8 Other abnormal and inconclusive findings on diagnostic imaging of breast (principal); Z80.3 Family history of malignant neoplasm of breast
CPT/HCPCS: 77066

== ENCOUNTER → 2023-03-08 | Outpatient (CLI) | payer BC ==
--- NOTE | 2023-03-08 13:25 | BMR ---
EXAM DATE: 03/08/2023 EXAM DESCRIPTION: MRI-Breast Bilat (W/WO Contrast) INDICATION: Genetic susceptibility to the breast cancer. (BRCA mutation positive) COMPARISON: Prior MR breast dated 02/11/2022 CONTRAST: 7.0 cc Gadavist contrast material. TECHNIQUE: Multi sequence multiplanar MR imaging of the breasts was obtained. Subsequently, after the uneventful intravenous administration of Gadavist contrast material, 6 dynamic sequences were then obtained. Post processing was performed utilizing a [email or web address] CAD workstation. FINDINGS: The breasts are composed of heterogeneous fibroglandular tissue. There is mild background parenchymal enhancement identified. There is no axillary or internal mammary lymphadenopathy. No adenopathy in the visualized mediastinum. No focal skin thickening or nipple retraction. Postsurgical changes are stable in the upper outer quadrant of left central breast. The bone marrow signal intensity is unremarkable T2 weighted images demonstrated no dominant cystic lesion in either breast. T2 bright lesion in the anterior right hepatic lobe likely represent a small cyst. Trace amount of fluid in the pleural spaces likely physiological in etiology. Post contrast images demonstrated no abnormal enhancement in either breast to suggest malignancy including left surgical site. There is no abnormal signal or enhancement in the chest wall or subcutaneous tissue. IMPRESSION: 1. No MR evidence of malignancy in either breast including left surgical site. 2. No axillary or internal mammary lymphadenopathy. Final assessment: BI-RADS category 2: Benign findings MTDD
== END | disposition home or self-care (01) ==
LOC: RADMRIMAIN 09:07
PROVIDERS: ATTEND Internal Medicine Hematology & Oncology
DX: Z15.01 Genetic susceptibility to malignant neoplasm of breast (principal); Z14.8 Genetic carrier of other disease; Z80.3 Family history of malignant neoplasm of breast; Z71.3 Dietary counseling and surveillance
CPT/HCPCS: 77049; A9585

== ENCOUNTER → 2023-07-27 | Outpatient (CLI) | payer BC ==
--- NOTE | 2023-07-28 13:39 | MM ---
Reason for Exam: Screening (asymptomatic). Last mammogram was performed 2 year(s) and 0 month(s) ago. Patient History: Menarche at age 14. First Full-Term at age 27. Patient used Hormonal Contraceptives for 3 years. 09/17/2021, Benign MG pre op needle loc LT on the left side. 08/13/2021, High risk Core Biopsy on the left side. Paternal aunt had breast cancer, age 30. Paternal aunt had breast cancer, age 30. Last menstrual period: Risk Values: Pricilla 5 year model risk: 2.3%. NCI Lifetime model risk: 16.0%. Prior Study Comparison: 07/21/2021 Bilateral Screening Mammogram, [facility]. 07/27/2021 Left Diagnostic Mammogram, [facility]. 07/25/2022 Bilateral MG diagnostic mammo w CAD NATALIE, [facility]. Tissue Density: The breasts are heterogeneously dense, which may obscure small masses. Findings: Analyzed By CAD. Right breast: Architectural distortion within the right breast on CC view not appreciated on MLO view. This is located slightly lateral at middle depth approximately 5.7 cm from the nipple. Left breast: There is no suspicious group of microcalcifications or new suspicious mass. Overall Assessment: Incomplete: need additional imaging evaluation, BI-RAD 0 Management: Diagnostic Mammogram of the right breast. [facility] will attempt to contact patient to return for supplemental views and ultrasound if indicated. Patient should continue monthly self-breast exams. A clinical breast exam by your physician is recommended on an annual basis. This exam should not preclude additional follow-up of suspicious palpable abnormalities. Note on Pricilla scores and lifetime risk: 1. A Pricilla score greater than 3% is considered moderate risk. If this is the case, consider specialist referral to assess eligibility for a risk reducing agent. 2. If overall lifetime risk for the development of breast cancer is 20% or higher, the patient may qualify for future screening with alternating mammogram and breast MRI. Electronically signed and approved by: Mati Grigsby DO
== END | disposition home or self-care (01) ==
LOC: RADMAMWWP 08:12
PROVIDERS: ATTEND Internal Medicine Hematology & Oncology
DX: Z12.31 Encounter for screening mammogram for malignant neoplasm of breast (principal); Z80.3 Family history of malignant neoplasm of breast
CPT/HCPCS: 77067

== ENCOUNTER → 2023-08-02 | Outpatient (CLI) | payer BC ==
--- NOTE | 2023-08-02 08:40 | MM ---
Reason for Exam: Additional evaluation requested from abnormal screening. Last screening mammogram was performed less than 1 month ago. Patient History: Menarche at age 14. First Full-Term at age 27. Patient used Hormonal Contraceptives for 3 years. 09/17/2021, Benign MG pre op needle loc LT on the left side. 08/13/2021, High risk Core Biopsy on the left side. Paternal aunt had breast cancer, age 30. Paternal aunt had breast cancer, age 30. Risk Values: Pricilla 5 year model risk: 2.3%. NCI Lifetime model risk: 16.0%. Prior Study Comparison: 07/21/2021 Bilateral Screening Mammogram, [facility]. 07/27/2021 Left Diagnostic Mammogram, [facility]. 02/11/2022 Bilateral MR breast bilat wo/w con, [facility]. 07/25/2022 Bilateral MG diagnostic mammo w CAD NATALIE, [facility]. 03/08/2023 Bilateral MR breast bilat wo/w con, [facility]. 07/27/2023 Bilateral MG screening mammo w CAD, [facility]. Tissue Density: Right: There are scattered areas of fibroglandular density. Findings: Analyzed By CAD. No evidence for persistent distortion or mass. Overall Assessment: Negative, BI-RAD 1 Management: Screening Mammogram of both breasts in 1 year. . Results were given to the patient verbally at the time of exam. Patient should continue monthly self-breast exams. A clinical breast exam by your physician is recommended on an annual basis. This exam should not preclude additional follow-up of suspicious palpable abnormalities. Note on Pricilla scores and lifetime risk: 1. A Pricilla score greater than 3% is considered moderate risk. If this is the case, consider specialist referral to assess eligibility for a risk reducing agent. 2. If overall lifetime risk for the development of breast cancer is 20% or higher, the patient may qualify for future screening with alternating mammogram and breast MRI. Electronically signed and approved by: Sadi Bell M.D. Radiologis
== END | disposition home or self-care (01) ==
LOC: RADMAMWWP 08:15
PROVIDERS: ATTEND Family Medicine
DX: R92.321 Mammographic fibroglandular density, right breast (principal); Z80.3 Family history of malignant neoplasm of breast
CPT/HCPCS: 77061; 77065

== ENCOUNTER → 2024-03-09 | Outpatient (CLI) | payer BC ==
--- NOTE | 2024-03-13 08:24 | BMR ---
EXAM DATE: 03/09/2024 EXAM DESCRIPTION: MRI-Breast Bilat (W/WO Contrast) INDICATION: BRCA mutation positive. Genetic susceptibility to breast cancer. COMPARISON: Prior breast MR dated 03/08/2023 CONTRAST: 7.0 cc Gadavist contrast material. TECHNIQUE: Multi sequence multiplanar MR imaging of the breasts was obtained. Subsequently, after the uneventful intravenous administration of Gadavist contrast material, 6 dynamic sequences were then obtained. Post processing was performed utilizing a [employer] CAD workstation. FINDINGS: The breasts are composed of heterogeneous fibroglandular tissue. There is mild background parenchymal enhancement identified. There is no axillary or internal mammary lymphadenopathy. No focal skin thickening or nipple retraction. No adenopathy in the visualized mediastinum. The bone marrow signal intensity is stable since prior examination. Postsurgical changes are stable in the upper outer quadrant of left central breast. T2 weighted images demonstrated no dominant cystic lesion in either breast. Post contrast images demonstrated no abnormal enhancement in either breast to suggest malignancy. There is no abnormal signal or enhancement in the chest wall or subcutaneous tissue. IMPRESSION: 1. No MR evidence of malignancy in either breast. 2. No axillary or internal mammary lymphadenopathy. Final assessment: BI-RADS category 2: Benign findings MTDD
== END | disposition home or self-care (01) ==
LOC: RADMRIMAIN 10:53
PROVIDERS: ATTEND Internal Medicine Hematology & Oncology
DX: Z14.8 Genetic carrier of other disease (principal); Z15.01 Genetic susceptibility to malignant neoplasm of breast
CPT/HCPCS: 77049; A9585